=== PATIENT | female | born 1940 | race Caucasian/White ===

== ENCOUNTER → 2016-06-14 | Outpatient (CLI) | payer BC, OTHER ==
[~2016-06-14] MED LIST: ASPCH81X PO; CHOL200010 PO; CITA10TA8 PO; CLX20 PO; ONDA4TAB7 SL; RALO1TAB2 PO; RALO60TA30 PO; SIMV-151 PO
== END | disposition home or self-care (01) ==
LOC: C.RDSM 08:50
PROVIDERS: ATTEND Family Medicine
DX: M25.551 Pain in right hip (principal)

== ENCOUNTER → 2016-06-21 | Day surgery (SDC) | payer BC, OTHER ==
[2016-06-18 09:48] VITALS: BMI 33.0
[~2016-06-21] VITALS: Ht 165.1 cm; Wt 90.9 kg
[~2016-06-21] MED LIST changes: -CLX20 PO; +LABETALOL HCL IV 5 MG/ML 20ML IV ONE; +LIDOCAINE HCL 2% 2 ML VIAL (20MG/ML) ONE; +METHYLENE BLUE 1% 10 ML VIAL ONE; -ONDA4TAB7 SL; +PROPOFOL IV EMULSION 10 MG/ML 20 ML VIAL IV ONE; -RALO1TAB2 PO; +SODIUM CHLORIDE 0.9% 500ML 500 ML IV ONE
[2016-06-21 12:34] VITALS: Ht 165.1 cm; Wt 90.9 kg
--- NOTE | 2016-06-21 13:10 | Endo History and Physical ---
History & Physical Date of Service: June 21, 2016. Chief Complaint: hx of polyps Referring Physician: Dr Quach History of Present Illness Colon for EMR Past Medical History Osteoporosis, Arthritis, Gastrointestinal Disorder, Sleep Apnea Past Surgical History Hx Cardiac Surgery: No Hx Internal Defibrillator: No Hx Pacemaker: No Hx Abdominal Surgery: Yes (APPY, LAP BAND, SOFI) Hx Post-Op Nausea and Vomiting: No Hx Cancer Surgery: Yes (ARM AND CHEST EXCISION) Hx Thoracic Surgery: No Hx Orthopedic: Yes (TRIGGER FINGER RELEASE, RT CTR, RT HIP ARTHROSCOPY) Hx Urinary Tract Surgery: No Family History None Social History Smoking Status: Former Smoker Hx Substance Use: No Hx Alcohol Use: Yes (OCCASIONALLY) Allergies Coded Allergies: Codeine (Verified Adverse Reaction, Mild, GI SYMPTOMS, 06/18/16) VOMITING Lorazepam (Verified Adverse Reaction, Unknown, WEAKNESS,LETHARGY X 5 DAYS , 06/18/16) Current Medications Reported Home Medications Medications Dose Route/Sig Max Daily Dose Days Date Category Aspirin Chewable (Aspirin) 81 Mg Chew 81 Mg PO QAM 06/18/16 Reported Vitamin D (Cholecalciferol) 2,000 Unit Cap 1 Cap PO HS 06/18/16 Reported Evista (Raloxifene Hcl) 60 Mg Tab 60 Mg PO HS 06/18/16 Reported Celexa (Citalopram Hydrobromide) 10 Mg Tab 10 Mg PO HS 06/18/16 Reported Simvastatin 20 Mg Tab 20 Mg PO HS 09/01/13 Reported Vital Signs Weight (Kilograms): 90.91 Height (Feet): 5 Height (Inches): 5 Date Time Temp Pulse Resp B/P Pulse Ox O2 Delivery O2 Flow Rate FiO2 06/21/16 12:43 36.6 70 24 150/89 96 Room Air Physical Exam AAO x3 Nl s1s2\Lungs CTA Abd soft NT/ND + BS - CCE Assessment and Plan colonoscopy with emr
--- NOTE | 2016-06-21 14:12 | Discharge Instructions ---
Endoscopy Patient Instructions Date / Procedure(s) Performed June 21, 2016. Colonoscopy Allergy Information Coded Allergies: Codeine (Verified Adverse Reaction, Mild, GI SYMPTOMS, 06/18/16) VOMITING Lorazepam (Verified Adverse Reaction, Unknown, WEAKNESS,LETHARGY X 5 DAYS , 06/18/16) Discharge Date / Findings June 21, 2016. polypectomy via EMR Medication Instructions Restart Stopped Medication(s): Reported Home Medications Medications Dose Route/Sig Max Daily Dose Days Date Category Aspirin Chewable (Aspirin) 81 Mg Chew 81 Mg PO QAM 06/18/16 Reported Vitamin D (Cholecalciferol) 2,000 Unit Cap 1 Cap PO HS 06/18/16 Reported Evista (Raloxifene Hcl) 60 Mg Tab 60 Mg PO HS 06/18/16 Reported Celexa (Citalopram Hydrobromide) 10 Mg Tab 10 Mg PO HS 06/18/16 Reported Simvastatin 20 Mg Tab 20 Mg PO HS 09/01/13 Reported Reported Home Medications Medications Dose Route/Sig Max Daily Dose Days Date Category Aspirin Chewable (Aspirin) 81 Mg Chew 81 Mg PO QAM 06/18/16 Reported Vitamin D (Cholecalciferol) 2,000 Unit Cap 1 Cap PO HS 06/18/16 Reported Evista (Raloxifene Hcl) 60 Mg Tab 60 Mg PO HS 06/18/16 Reported Celexa (Citalopram Hydrobromide) 10 Mg Tab 10 Mg PO HS 06/18/16 Reported Simvastatin 20 Mg Tab 20 Mg PO HS 09/01/13 Reported Provider Instructions Activity Restrictions - No exercising or heavy lifting for 24 hours. - Do not drink alcohol the day of the procedure. - Do not drive a car or operate machinery until the day after the procedure. - Do not make any important decisions or sign important papers in 24 hours after the procedure. Following Day: - Return to full activity which may include returning to work/school. Diet Start your diet with liquids and light foods (jello, soup, juice, toast). Then eat your usual diet if not nauseated. Treatment For Common After Affects For mild abdominal pain, bloating, or excessive gas: - Rest - Eat lightly - Lie on right side Follow-Up Information Follow-up with Dr Quach as scheduled Anesthesia Information What You Should Know You have had a procedure that required some medicine to reduce anxiety and discomfort. This treatment is called moderate sedation. After receiving the treatment, you may be sleepy, but you will be able to breathe on your own. The effects of the treatment may last for several hours. Follow these instructions along with Activity/Diet recommendations noted above: * Do NOT do anything where dizziness or clumsiness would be dangerous. * Rest quietly at home today, then you can be up and about tomorrow. * Have a responsible person stay with you the rest of today. * You may have had an I.V. today. If so, you may take the dressing off later today. Recommendations Call your doctor if: * Trouble breathing * Continuous vomiting for more than 24 hours * Temperature above 101 degrees * Severe abdominal pain or bloating * Pain not relieved by pain medicine ordered * There is increased drainage or redness from any incision * A large amount of rectal bleeding greater than 2-3 tablespoons. (If you had a polyp/s removed or have hemorrhoids, a small amount of blood - from the rectum is to be expected.) * You have any unanswered questions or concerns. IN THE EVENT OF A SERIOUS EMERGENCY, GO TO THE NEAREST EMERGENCY ROOM Your discharge instructions were prepared by provider Bill Umanzor. Patient Instructions Signature Page Crystal Horner Patient (or Guardian) Signature/Date: I have read and understand the instructions given to me by my caregivers. Caregiver/RN/Doctor Signature/Date: The above-named patient and/or guardian has received patient instructions on this date. + Original Patient Signature Page (only) stays with chart. Please make copy for patient.
--- NOTE | 2016-06-21 14:20 | GI REPORT ---
Procedure Date: 06/21/2016 1:14 PM Procedure: Colonoscopy Indications: Therapeutic procedure for colon polyps Medicines: Propofol per Anesthesia Complications: No immediate complications. Estimated blood loss: None. Estimated Blood Loss: Estimated blood loss was minimal. Procedure: Pre-Anesthesia Assessment: - Prior to the procedure, a History and Physical was performed, and patient medications and allergies were reviewed. The patient's tolerance of previous anesthesia was also reviewed. The risks and benefits of the procedure and the sedation options and risks were discussed with the patient. All questions were answered, and informed consent was obtained. Prior Anticoagulants: The patient has taken no previous anticoagulant or antiplatelet agents. ASA Grade Assessment: III - A patient with severe systemic disease. After reviewing the risks and benefits, the patient was deemed in satisfactory condition to undergo the procedure. After I obtained informed consent, the scope was passed under direct vision. Throughout the procedure, the patient's blood pressure, pulse, and oxygen saturations were monitored continuously. The scope was introduced through the anus and advanced to the cecum, identified by appendiceal orifice and ileocecal valve. The colonoscopy was performed without difficulty. The patient tolerated the procedure well. The quality of the bowel preparation was good. Findings: The perianal and digital rectal examinations were normal. Pertinent negatives include normal sphincter tone, no palpable rectal lesions and no anal lesion or abnormality was detected. A 20 mm polyp was found in the ascending colon. The polyp was sessile. Area was successfully injected with 9 mL saline with methylene blue for a lift polypectomy via endoscopic mucosal resection technique( EMR). The polyp was removed with a hot snare. The polyp was removed with a saline injection-lift technique using a hot snare. The polyp was removed with a piecemeal technique using a hot snare. Resection and retrieval were complete. To prevent bleeding after mucosal resection, six hemostatic clips were successfully placed (MR conditional). There was no bleeding during, and at the end, of the procedure. A 7 mm polyp was found at 20 cm proximal to the anus. The polyp was sessile. The polyp was removed with a hot snare. Resection and retrieval were complete. Estimated blood loss: none. Verification of patient identification for the specimen was done by the physician and tool technician using the patient's name and medical record number. The exam was otherwise without abnormality. The retroflexed view of the distal rectum and anal verge was normal and showed no anal or rectal abnormalities. Impression: - One 20 mm polyp in the ascending colon, removed with a hot snare, removed using injection-lift and a hot snare and removed piecemeal using a hot snare. Resected and retrieved. Injected. Clips (MR conditional) were placed. - One 7 mm polyp at 20 cm proximal to the anus, removed with a hot snare. Resected and retrieved. - The examination was otherwise normal. - The distal rectum and anal verge are normal on retroflexion view. Recommendation: - Patient has a contact number available for emergencies. The signs and symptoms of potential delayed complications were discussed with the patient. Return to normal activities tomorrow. Written discharge instructions were provided to the patient. - Resume regular diet. - Continue present medications. - Await pathology results. - Repeat colonoscopy for surveillance based on pathology results. - Return to referring physician as previously scheduled. MD Bill Dunlap MD 06/21/2016 2:20:24 PM This report has been signed electronically. Note Initiated On: 06/21/2016 1:14 PM I attest to the content of the Intraoperative Record and orders documented therein, exceptions below
--- NOTE | 2016-06-21 14:34 | Anesthesiology Progress Note ---
Anesthesia Post Op Note Date & Time June 21, 2016 at 14:34 Vital Signs Pain Intensity: 5 Vital Signs Past 12 Hours Date Time Temp Pulse Resp B/P Pulse Ox O2 Delivery O2 Flow Rate FiO2 06/21/16 14:30 66 16 140/80 97 Room Air 06/21/16 14:19 70 16 151/79 97 Room Air 06/21/16 12:43 36.6 70 24 150/89 96 Room Air Notes Mental Status: alert / awake / arousable, participated in evaluation Pt Amnestic to Procedure: Yes Nausea / Vomiting: adequately controlled Pain: adequately controlled Airway Patency, RR, SpO2: stable & adequate BP & HR: stable & adequate Hydration State: stable & adequate Anesthetic Complications: no major complications apparent Pt doing well. She's having some cramping which is expected since she had an EMR but overall feels well.
[2016-06-21 14:40] VITALS: BP 156/96; PULSE 72; O2SAT 96
== END | disposition home or self-care (01) ==
LOC: C.GI 12:09
PROVIDERS: ATTEND Internal Medicine Gastroenterology
DX: D12.2 Benign neoplasm of ascending colon (principal); Z86.010 Personal history of colon polyps; Z98.84 Bariatric surgery status; Z90.49 Acquired absence of other specified parts of digestive tract; M81.0 Age-related osteoporosis without current pathological fracture; G47.30 Sleep apnea, unspecified; Z87.891 Personal history of nicotine dependence

== ENCOUNTER 2016-08-21 20:48 | Emergency (ER) | payer BC ==
[~2016-08-21] VITALS: Ht 165.1 cm; Wt 98.6 kg
[~2016-08-21 20:48] MED LIST changes: -LABETALOL HCL IV 5 MG/ML 20ML IV ONE; -LIDOCAINE HCL 2% 2 ML VIAL (20MG/ML) ONE; -METHYLENE BLUE 1% 10 ML VIAL ONE; -PROPOFOL IV EMULSION 10 MG/ML 20 ML VIAL IV ONE; +RALO60TA12 PO; -RALO60TA30 PO; -SODIUM CHLORIDE 0.9% 500ML 500 ML IV ONE
[2016-08-21 20:55] VITALS: TEMP 36.7; Ht 165.1 cm; Wt 98.6 kg
[2016-08-21] MEDS ORDERED: XYLOCAINE 1%/SOD BICARB 20 ML VIAL INFIL ONE (21:45)
[2016-08-21] MEDS ORDERED: BUPIVACAINE 0.5 % 5 MG/1 ML MPF 30ML VIAL INFIL ONE (21:45)
--- NOTE | 2016-08-21 22:32 | EMERGENCY ROOM VISIT NOTE ---
ED Visit Note First contact with patient: 21:28 CHIEF COMPLAINT: Finger laceration HISTORY OF PRESENT ILLNESS: This 75-year-old female patient presents to the emergency department after cutting the left second and third digit with electric hedge clippers The bleeding has stopped. Denies weakness or numbness of the finger. The patient has full range of motion of the fingers. The patient rates the pain as burning and 3/10. The patient denies any other injuries. The patient's tetanus shot is up to date. REVIEW OF SYSTEMS: A 6 system review of systems was completed with positives and pertinent negatives listed in the HPI. ALLERGIES: No known drug allergies MEDICATIONS: I personally reviewed the patient's medication list PMH: She is otherwise healthy SOCIAL HISTORY: Has one glass of wine per day, does not use tobacco products PHYSICAL EXAM: Vital Signs: Reviewed Nurse's notes, vital signs stable. GENERAL : 75-year-old female, in no acute distress, well developed, well nourished. SKIN: There is a 1 cm long laceration on the palmar aspect of the distal aspect of the left second finger. The edges do not gape apart with traction. There is no foreign material in the wound and it looks clean. There is no active bleeding. There is also a very superficial 0.5 cm laceration to the pad of the left third digit with no active bleeding or foreign material. Capillary refill less than 2 seconds. Normal sensation to light and sharp touch. EMERGENCY DEPARTMENT COURSE: I examined the patient. The physician community assistant student repaired the laceration under my direct supervision. Verbal consent was obtained to perform the procedure. Using sterile technique the wound was cleansed with Betadine. 5 ml of 1% buffered lidocaine was used to perform a digital block to anesthetize the patient. The area was sterilely draped. Once the patient was anesthetized, the wound was copiously irrigated under pressure with sterile saline. The wound was explored and there were no deep structures injured. The laceration was repaired using Dermabond and Steri-Strips. The patient tolerated the procedure well. Hemostasis was achieved. The area was cleaned with sterile saline and dressed with bacitracin ointment and bandage. The patient was discharged home in good condition. DIAGNOSIS: Finger laceration DISCHARGE INSTRUCTIONS & TREATMENT: Please try not to get the lacerations wet for 24-48 hours. After that timeframe, the Band-Aids may be removed. Washing your hands with soapy water is okay. Please do not soak your hands and long standing water. For instance, no dishes, no baths no hot tubs or swimming for 1 week. Please watch for signs of infection such as redness, swelling or severe pain. Please follow up with the family doctor as needed, or return the emergency department.
[2016-08-21 23:06] VITALS: BP 153/87; PULSE 74; O2SAT 95
== END 2016-08-21 22:42 | disposition home or self-care (01) ==
LOC: C.EDB 20:50 → C.EDD 22:42
DX: S61.211A Laceration without foreign body of left index finger without damage to nail, initial encounter (principal); S61.213A Laceration without foreign body of left middle finger without damage to nail, initial encounter; W45.8XXA Other foreign body or object entering through skin, initial encounter

== ENCOUNTER → 2016-12-27 | Outpatient (CLI) | payer BC, OTHER ==
[~2016-12-27] MED LIST changes: -RALO60TA12 PO; +RALO60TA30 PO
--- NOTE | 2016-12-27 10:45 | DIAGNOSTIC IMAGING REPORT ---
SOFT TISS HEAD/NECK-THYROID CLINICAL HISTORY: 76 years-old Female presenting with E04.1. TECHNIQUE: Real-time grayscale and color Doppler ultrasound imaging of the thyroid and base of the neck was performed. COMPARISON: 12/29/2015. FINDINGS: Right lobe: Heterogeneous secondary to the presence of multiple nodules. The right lobe of the thyroid measures 4.6 x 2.3 x 1.5 cm. Nodules as below: 1. Previously seen isoechoic nodule in the interpolar region with a thin hypoechoic rim now measures 1.2 x 1.2 x 1.2 cm, previously 1.0 x 1.2 x 0.9 cm (low suspicion). 2. 0.7 x 0.3 x 0.7 cm interpolar anterior well-defined hypoechoic nodule (intermediate suspicion). 3. 0.6 x 0.3 x 0.5 cm lower pole anterior well-defined hypoechoic nodule (intermediate suspicion). Left lobe: Heterogeneous secondary to the presence of multiple nodules. The left lobe of the thyroid measures 4.1 x 1.6 x 1.3 cm. Nodules below: 1. 0.8 x 0.7 x 0.4 cm interpolar well-defined hypoechoic nodule (intermediate suspicion). 2. 1.2 x 1.1 x 0.8 cm lower pole well-defined isoechoic nodule (low suspicion). Isthmus: The isthmus measures 2 mm in thickness. No nodules. IMPRESSION: Multinodular thyroid. Increased number of nodules since the prior exam. No nodules meet [place] [employer] criteria for fine-needle aspiration at this time. Continued follow-up ultrasound could be considered as clinically indicated. Electronically signed by: Chang Basilio M.D. 12/27/2016 10:44 AM Dictated Date/Time: 12/27/2016 10:38 AM
== END | disposition home or self-care (01) ==
LOC: C.ULTR 09:40
PROVIDERS: ATTEND Family Medicine
DX: E04.2 Nontoxic multinodular goiter (principal)

== ENCOUNTER → 2017-06-17 | Outpatient (CLI) | payer BC ==
[~2017-06-17] MED LIST changes: -ASPCH81X PO; +CALC500C70 PO; +CHOL100010 PO; -CITA10TA8 PO; -RALO60TA30 PO
--- NOTE | 2017-06-17 14:35 | MAMMOGRAPHY REPORT ---
BILATERAL DIGITAL SCREENING MAMMOGRAM TOMOSYNTHESIS WITH CAD: 06/17/2017 CLINICAL HISTORY: Routine screening. Patient has no complaints. TECHNIQUE: Breast tomosynthesis in addition to standard 2D mammography was performed. Current study was also evaluated with a Computer Aided Detection (CAD) system. COMPARISON: Comparison is made to exams dated: 01/11/2015 mammogram, 11/06/2012 mammogram, 11/06/2011 m ammogram, 10/26/2010 mammogram - [facility], 07/15/2008, and 07/12/2008. BREAST COMPOSITION: There are scattered areas of fibroglandular density in both breasts. FINDINGS: The parenchymal pattern is unchanged. No developing mass, architectural distortion or clus ter of suspicious microcalcifications is seen in either breast. There are benign appearing scattered calcifications in both breasts. IMPRESSION: ACR BI-RADS CATEGORY 2: BENIGN There is no mammographic evidence of malignancy. A 1 year screening mammogram is recommended. The pa tient will receive written notification of the results. Approximately 10% of breast cancers are not detected with mammography. A negative mammographic report should not delay biopsy if a clinically suggestive mass is present. Gracie Alejandre M.D. ay/:06/17/2017 13:28:35 Spray Drier: Clair RAMOS(Jose Antonio)(M), [facility] letter sent: Normal 1/2 BI-RADS Code: ACR BI-RADS Category 2: Benign
== END | disposition home or self-care (01) ==
LOC: C.MAMM 10:30
PROVIDERS: ATTEND Family Medicine
DX: Z12.31 Encounter for screening mammogram for malignant neoplasm of breast (principal); M81.0 Age-related osteoporosis without current pathological fracture; M85.851 Other specified disorders of bone density and structure, right thigh; M85.852 Other specified disorders of bone density and structure, left thigh

== ENCOUNTER → 2017-06-24 | Day surgery (SDC) | payer BC ==
[~2017-06-24] VITALS: Ht 162.6 cm; Wt 79.5 kg
[~2017-06-24] MED LIST changes: +LIDOCAINE HCL 2% 2 ML VIAL (20MG/ML) ONE; +METHYLENE BLUE 0.5% 10 ML VIAL ONE; +PROPOFOL IV EMULSION 10 MG/ML 20 ML VIAL ONE; +SODIUM CHLORIDE 0.9% 500ML 500 ML IV ONE
[2017-06-24 13:11] VITALS: Ht 162.6 cm; Wt 79.5 kg
--- NOTE | 2017-06-24 15:08 | Endo History and Physical ---
History & Physical Date of Service: June 24, 2017. Chief Complaint: hx polyps Referring Physician: Dr. Quach History of Present Illness hx of polyps Past Medical History Osteoporosis, Arthritis, Gastrointestinal Disorder, Sleep Apnea Past Surgical History Hx Cardiac Surgery: No Hx Internal Defibrillator: No Hx Pacemaker: No Hx Abdominal Surgery: Yes (APPY, LAP BAND, SOFI) Hx Post-Op Nausea and Vomiting: No Hx Cancer Surgery: Yes (ARM AND CHEST EXCISION) Hx Thoracic Surgery: No Hx Orthopedic: Yes (TRIGGER FINGER RELEASE, RT CTR, RT HIP ARTHROSCOPY) Hx Urinary Tract Surgery: No Social History Smoking Status: Former Smoker Hx Substance Use: No Hx Alcohol Use: Yes (OCCASIONALLY) Allergies Coded Allergies: Codeine (Verified Adverse Reaction, Mild, GI SYMPTOMS, 06/24/17) VOMITING Lorazepam (Verified Adverse Reaction, Unknown, WEAKNESS,LETHARGY X 5 DAYS , 06/24/17) Current Medications Reported Home Medications Medications Dose Route/Sig Max Daily Dose Days Date Category Vitamin D (Cholecalciferol) 1,000 Unit Tab 3 Tab PO DAILY 06/13/17 Reported Os-Erich 500 Plus D (Calcium/Vitamin D) Tab 2 Tab PO DAILY 06/13/17 Reported Vitamin D (Cholecalciferol) 2,000 Unit Cap 1 Cap PO HS 06/18/16 Reported Simvastatin 20 Mg Tab 20 Mg PO HS 09/01/13 Reported Vital Signs Weight (Kilograms): 79.55 Height (Feet): 5 Height (Inches): 4 Date Time Temp Pulse Resp B/P (MAP) Pulse Ox O2 Delivery O2 Flow Rate FiO2 06/24/17 13:17 36.6 66 20 151/90 (110) 97 Room Air Physical Exam General Appearance: WD/WN, no apparent distress Respiratory/Chest: Auscultation: breath sounds normal Cardiovascular: Heart Auscultation: RRR Abdomen: Bowel Sounds: normal Inspection & Palpation: soft, non-distended, no tenderness, guarding & rebound Assessment and Plan colonoscopy with possible bx, polypectomy and/or EMR
--- NOTE | 2017-06-24 15:52 | Discharge Instructions ---
Endoscopy Patient Instructions Date / Procedure(s) Performed June 24, 2017. Colonoscopy Allergy Information Coded Allergies: Codeine (Verified Adverse Reaction, Mild, GI SYMPTOMS, 06/24/17) VOMITING Lorazepam (Verified Adverse Reaction, Unknown, WEAKNESS,LETHARGY X 5 DAYS , 06/24/17) Discharge Date / Findings June 24, 2017. polyps removed/cautery Medication Instructions Restart Stopped Medication(s): Reported Home Medications Medications Dose Route/Sig Max Daily Dose Days Date Category Vitamin D (Cholecalciferol) 1,000 Unit Tab 3 Tab PO DAILY 06/13/17 Reported Os-Erich 500 Plus D (Calcium/Vitamin D) Tab 2 Tab PO DAILY 06/13/17 Reported Vitamin D (Cholecalciferol) 2,000 Unit Cap 1 Cap PO HS 06/18/16 Reported Simvastatin 20 Mg Tab 20 Mg PO HS 09/01/13 Reported Reported Home Medications Medications Dose Route/Sig Max Daily Dose Days Date Category Vitamin D (Cholecalciferol) 1,000 Unit Tab 3 Tab PO DAILY 06/13/17 Reported Os-Erich 500 Plus D (Calcium/Vitamin D) Tab 2 Tab PO DAILY 06/13/17 Reported Vitamin D (Cholecalciferol) 2,000 Unit Cap 1 Cap PO HS 06/18/16 Reported Simvastatin 20 Mg Tab 20 Mg PO HS 09/01/13 Reported Provider Instructions Activity Restrictions - No exercising or heavy lifting for 24 hours. - Do not drink alcohol the day of the procedure. - Do not drive a car or operate machinery until the day after the procedure. - Do not make any important decisions or sign important papers in 24 hours after the procedure. Following Day: - Return to full activity which may include returning to work/school. Diet Start your diet with liquids and light foods (jello, soup, juice, toast). Then eat your usual diet if not nauseated. Treatment For Common After Affects For mild abdominal pain, bloating, or excessive gas: - Rest - Eat lightly - Lie on right side Follow-Up Information Follow-up with Dr. Quach as scheduled Anesthesia Information What You Should Know You have had a procedure that required some medicine to reduce anxiety and discomfort. This treatment is called moderate sedation. After receiving the treatment, you may be sleepy, but you will be able to breathe on your own. The effects of the treatment may last for several hours. Follow these instructions along with Activity/Diet recommendations noted above: * Do NOT do anything where dizziness or clumsiness would be dangerous. * Rest quietly at home today, then you can be up and about tomorrow. * Have a responsible person stay with you the rest of today. * You may have had an I.V. today. If so, you may take the dressing off later today. Recommendations Call your doctor if: * Trouble breathing * Continuous vomiting for more than 24 hours * Temperature above 101 degrees * Severe abdominal pain or bloating * Pain not relieved by pain medicine ordered * There is increased drainage or redness from any incision * A large amount of rectal bleeding greater than 2-3 tablespoons. (If you had a polyp/s removed or have hemorrhoids, a small amount of blood - from the rectum is to be expected.) * You have any unanswered questions or concerns. IN THE EVENT OF A SERIOUS EMERGENCY, GO TO THE NEAREST EMERGENCY ROOM Your discharge instructions were prepared by provider Bill Umanzor. Patient Instructions Signature Page Crystal Horner Patient (or Guardian) Signature/Date: I have read and understand the instructions given to me by my caregivers. Caregiver/RN/Doctor Signature/Date: The above-named patient and/or guardian has received patient instructions on this date. + Original Patient Signature Page (only) stays with chart. Please make copy for patient.
--- NOTE | 2017-06-24 16:11 | GI REPORT ---
Patient Name: Crystal Horner Procedure Date: 06/24/2017 2:54 PM Date of : 1940 Admit Type: Outpatient Age: 76 Gender: Female Attending MD: Bill Umanzor MD Procedure: Colonoscopy Providers: Bill Umanzor MD Referring MD: Michael Quach Indications: Therapeutic procedure for colon polyps Medicines: Propofol per Anesthesia Complications: No immediate complications. Estimated blood loss: Minimal. Estimated Blood Loss: Estimated blood loss was minimal. Procedure: Pre-Anesthesia Assessment: - Prior to the procedure, a History and Physical was performed, and patient medications and allergies were reviewed. The patient's tolerance of previous anesthesia was also reviewed. The risks and benefits of the procedure and the sedation options and risks were discussed with the patient. All questions were answered, and informed consent was obtained. Prior Anticoagulants: The patient has taken no previous anticoagulant or antiplatelet agents. ASA Grade Assessment: II - A patient with mild systemic disease. After reviewing the risks and benefits, the patient was deemed in satisfactory condition to undergo the procedure. After I obtained informed consent, the scope was passed under direct vision. Throughout the procedure, the patient's blood pressure, pulse, and oxygen saturations were monitored continuously. The scope was introduced through the anus and advanced to the terminal ileum, with identification of the appendiceal orifice and IC valve. The colonoscopy was performed without difficulty. The patient tolerated the procedure well. The quality of the bowel preparation was good. Findings: The perianal and digital rectal examinations were normal. Pertinent negatives include normal sphincter tone, no palpable rectal lesions and no anal lesion or abnormality was detected. A 5 mm polyp was found in the ascending colon. The polyp was sessile. The polyp was removed with a cold biopsy forceps. Resection and retrieval were complete. Estimated blood loss was minimal. Verification of patient identification for the specimen was done by the physician and highway engineering technician using the patient's name and medical record number. Fulguration to ablate the lesion remnants by monopolar probe was successful. A 10 mm polyp was found in the ascending colon. The polyp was sessile. The polyp was removed with a hot snare. Resection and retrieval were complete. Fulguration to ablate the lesion remnants by monopolar probe and snare was successful. To prevent bleeding after the polypectomy, one hemostatic clip was successfully placed (MR conditional). There was no bleeding during, or at the end, of the procedure. The exam was otherwise without abnormality. The terminal ileum appeared normal. The retroflexed view of the distal rectum and anal verge was normal and showed no anal or rectal abnormalities. Impression: - One 5 mm polyp in the ascending colon, removed with a cold biopsy forceps. Resected and retrieved. Treated with a monopolar probe. - One 10 mm polyp in the ascending colon, removed with a hot snare. Resected and retrieved. Treated with a monopolar probe. Treated with a hot snare. Clip (MR conditional) was placed. - The examination was otherwise normal. - The examined portion of the ileum was normal. - The distal rectum and anal verge are normal on retroflexion view. Recommendation: - Discharge patient to home (ambulatory). - Resume regular diet. - Continue present medications. - Repeat colonoscopy for surveillance based on pathology results. - Return to referring physician as previously scheduled. - Repeat colonoscopy in 6-12 months for surveillance based on pathology results. MD Bill Dunlap MD 06/24/2017 4:10:28 PM This report has been signed electronically. Note Initiated On: 06/24/2017 2:54 PM Number of Addenda: 0 I attest to the content of the Intraoperative Record and orders documented therein, exceptions below {[id number]}
--- NOTE | 2017-06-24 16:22 | Anesthesiology Progress Note ---
Anesthesia Post Op Note Date & Time June 24, 2017 at 16:22 Vital Signs Pain Intensity: 0 Vital Signs Past 12 Hours Date Time Temp Pulse Resp B/P (MAP) Pulse Ox O2 Delivery O2 Flow Rate FiO2 06/24/17 16:12 62 16 166/91 (116) 98 Room Air 06/24/17 15:57 64 16 148/94 (112) 98 Room Air 06/24/17 13:17 36.6 66 20 151/90 (110) 97 Room Air
[2017-06-24 16:27] VITALS: BP 173/97; PULSE 60; O2SAT 96
== END | disposition home or self-care (01) ==
LOC: C.GI 12:02
PROVIDERS: ATTEND Internal Medicine Gastroenterology
DX: Z86.010 Personal history of colon polyps (principal); K63.5 Polyp of colon; G47.33 Obstructive sleep apnea (adult) (pediatric); Z88.5 Allergy status to narcotic agent; Z88.8 Allergy status to other drugs, medicaments and biological substances; Z90.89 Acquired absence of other organs; Z90.49 Acquired absence of other specified parts of digestive tract; Z87.891 Personal history of nicotine dependence; Z85.828 Personal history of other malignant neoplasm of skin

== ENCOUNTER 2022-05-12 10:16 | Inpatient (IN) ==
--- NOTE | 2022-05-12 10:53 | Emergency Department Note ---
Impression & Plan Right leg weakness, Paresthesia of right leg ED Provider Note Name: MARCI WILDE Age: 81 Sex: F Arrives Via: Walk-In Informant: Patient, son ED Provider: Johnathan Escamilla MD Chief Complaint: Right leg weakness Impression: As per impressions above Medical Decision Makin-year-old female with a history of dyslipidemia and osteoporosis and a remote history of sciatica arrives for evaluation of right leg paresthesias and weakness which began at 3 AM this morning. She is well outside of thrombolytic therapy range and her exam is not consistent with a large vessel. She does have about 4 out of 5 strength of the right quad but no other weakness in the leg. She has not decreased perceived sensation of the right leg but she can still feel. She has good pulses. CT of the head was unremarkable as well as a CT of the lumbar spine. EKG is normal sinus without A-fib. Laboratory work-up is benign. I am somewhat suspicious that the patient has had a small CVA. It seems unlikely sciatic in nature given she has essentially no sciatica pain. Clearly her will need further work-up and hospitalist consulted for further management. I will note that patient was not given aspirin as she has a possible previous allergy. Discussed with hospitalist who will await work-up of MRI prior to initiating aspirin and Plavix. Patient is comfortable with this plan. I will note she has no abdominal pain tenderness palpation or evidence of aortic/femoral artery occlusion. Triage/Nursing Notes reviewed by Me External chart review by me Differentials:Stroke, nerve impingement, sciatica, infectious etiology, DVT, aortic pathology, multiple other pathologies considered Vital Signs: reviewed and remarkable for hypertension Labs:Reviewed and remarkable for no significant abnormalities Imaging: CT of the head without contrast as per my informal interpretation reveals no evidence of intracranial hemorrhage or mass effect. CT of the lumbar spine as per my informal interpretation reveals no evidence of fracture no dislocation. There is moderate amount of osteoporosis. See radiologist reads for full. EKG:As per my interpretation. Indication strokelike symptoms. Right bundle branch block at 71 bpm and a QTc of 469. There is no ectopy nor overt ischemia. When compared to an EKG of January 09, 2014 there is no significant change. Cardiac/Tele Monitoring: Cardiac Monitoring: An Order was placed for continuous cardiac monitoring. The monitor shows a rate of 70 with a normal sinus rhythm. Consults:Dr Meg ROACH Hospitalist Plan: Disposition:Hospitalization. Condition: Good History of Present Illness:81-year-old female arrives for evaluation of right leg weakness. Patient notes she awoke around 3 AM felt like her right leg had gone to sleep. She is unable to use it properly. She ended up going back to [facility] thinking she just slept on it awkwardly. Symptoms have continued throughout the day. When she got up this morning she realized her leg was weak so she found an old cane and has been using a cane to get around because her leg is so weak. Feels that the tingling goes over the lateral leg down to the foot with minimal sensation over the bottom of the foot. Denies any significant pain, rash, fevers. Has no discoloration of the leg. Denies any chest pain, shortness of breath, palpitations, headache, neck pain, weakness of arms or legs, visual changes, nausea, vomiting, abdominal pain or any other concerning signs or symptoms recently. No recent falls, trauma, injuries. She does have a history of right leg sciatica but denies any previous symptoms similar to today. Has a history of right hip surgery. Past Medical History:Dyslipidemia, osteoporosis Home Medications:See Below Allergies:Ativan, codeine. Patient notes she previously had aspirin many years ago and had hives after taking it. Vitals:Blood Pressure: 143/83, Pulse 70, RR 18, T 36.2C, O2 96% on RA Physical Exam: GENERAL: Patient is mildly anxious appearing and in minimal distress. EYES: No scleral icterus, unremarkable pupils. RESPIRATORY: No dyspnea. Clear to auscultation and equal bilaterally. No wheeze, no rhonchi. CARDIOVASCULAR: Regular rate and rhythm.No murmurs, rubs, gallops appreciated. GASTROINTESTINAL: Abdomen soft, non-tender, no peritonitis. BACK: No midline tenderness, no CVA tenderness EXTREMITIES: Normal motion all extremities, no cyanosis, no edema. NEUROLOGIC: Alert and oriented. Patient with 4 out of 5 proximal right thigh strength but otherwise 5 out of 5 strength all 4 extremities. She reports perceived paresthesias of the right lower leg from the lateral right calf to the foot and bottom of foot. Still has sensation. Otherwise no acute motor or sensory deficits, no focal weakness, cranial nerves grossly intact. SKIN: No rash, no jaundice, no diaphoresis. PSYCH: Appropriate GCS: 15 ED Course: Times/Reassessments: Patient stable no distress and agreeable to hospitalization. Johnathan Escamilla MD Past Med/Surg History Medical History (Updated 05/12/22 @ 13:33 by Chang Weaver MD) AAA (abdominal aortic aneurysm) PCP monitoring -- last evaluated approx 1 year ago [place] Foot fracture hx multiple fractures Hand fracture hx multiple hand bones History of basal cell carcinoma History of colon polyps History of squamous cell carcinoma History of trigger finger Hyperlipidemia Sleep apnea CPAP Surgical History History of appendectomy History of arthroscopy Rt hip History of basal cell carcinoma (BCC) excision History of cataract surgery History of cholecystectomy History of colonoscopy History of dilatation and curettage History of laparoscopic adjustable gastric banding History of squamous cell carcinoma excision History of tonsillectomy S/P carpal tunnel release Family History Father Cardiac disorder Other Arthritis No family history of adverse response to anesthesia Social History Smoking Status: Former smoker Cigarettes Per Day: QUIT 14 YEARS AGO, HX OF 1PPD; Smoking End Date: 18 years ago; Second Hand Exposure: No; Hx Alcohol Use: Yes Alcohol type: wine Hx Substance Use: No Preferred Language: Ukrainian Communication Ability: Effective Refining Still Operator Required: No Beliefs That Will Affect Care: None Current Living Situation: Alone current occupational status: retired Feels Safe at Home: Yes Safety Concerns: Feels Safe At This Time Assistive Devices: CPAP Allergies Allergies Allergy/AdvReac Type Severity Reaction Status Date / Time lorazepam AdvReac Intermediate WEAKNESS,LETHARGY Verified 05/12/22 14:24 X 5 DAYS codeine AdvReac Mild GI SYMPTOMS Verified 05/12/22 14:24 Home Meds Home Medications Medication Instructions Recorded Confirmed calcium carbonate 600 mg calcium 1,200 mg PO QAM 03/30/18 05/12/22 (1,500 mg) tablet (Calcium) cholecalciferol (vitamin D3) 25 2,000 unit PO QAM 03/30/18 05/12/22 mcg (1,000 unit) capsule (Vitamin D3) simvastatin 20 mg tablet 20 mg PO QAM 03/30/18 05/12/22 ascorbic acid (vitamin C) 250 mg 500 mg PO QAM 07/26/21 05/12/22 tablet (Vitamin C) amlodipine 5 mg-olmesartan 20 mg 1 tab PO DAILY 05/12/22 05/12/22 tablet citalopram 10 mg tablet 10 mg PO DAILY 05/12/22 05/12/22 Results & Data (ED) Vital Signs Vital Signs - 24 hr 05/12/22 10:23 05/12/22 10:50 05/12/22 12:17 Temperature 36.2 C L Temperature Source Temporal Artery Scan Pulse Rate 70 58 L Pulse Rate [Apical] 55 L Pulse Rate from SpO2 Sensor Respiratory Rate 18 18 Respiratory Effort / Characteristics Non-Labored Non-Labored Spontaneous Respiratory Depth Normal Normal Respiratory Pattern Regular Regular Blood Pressure 143/83 H Blood Pressure [Right Arm] 174/90 H Blood Pressure Mean 103 Blood Pressure Mean [Right Arm] 118 Blood Pressure Position [Right Arm] Sitting Pulse Oximetry 96 97 Oxygen Delivery Method Room Air Room Air Sepsis Recent Fever Within 48 Hours No Sepsis New/Unexplained Change in Mental Status N/A Sepsis Action Taken by Nursing No Action Required 05/12/22 11:00 05/12/22 12:00 05/12/22 12:44 Temperature Temperature Source Pulse Rate 72 59 L 60 Pulse Rate [Apical] Pulse Rate from SpO2 Sensor 72 Respiratory Rate 23 20 18 Respiratory Effort / Characteristics Respiratory Depth Respiratory Pattern Blood Pressure 154/79 H Blood Pressure [Right Arm] Blood Pressure Mean 104 Blood Pressure Mean [Right Arm] Blood Pressure Position [Right Arm] Pulse Oximetry 95 95 95 Oxygen Delivery Method Room Air Room Air Room Air Sepsis Recent Fever Within 48 Hours Sepsis New/Unexplained Change in Mental Status Sepsis Action Taken by Nursing 05/12/22 12:44 05/12/22 13:00 Temperature Temperature Source Pulse Rate 64 Pulse Rate [Apical] Pulse Rate from SpO2 Sensor 64 Respiratory Rate 17 Respiratory Effort / Characteristics Respiratory Depth Respiratory Pattern Blood Pressure 154/79 H 160/84 H Blood Pressure [Right Arm] Blood Pressure Mean 104 109 Blood Pressure Mean [Right Arm] Blood Pressure Position [Right Arm] Pulse Oximetry 96 Oxygen Delivery Method Room Air Sepsis Recent Fever Within 48 Hours Sepsis New/Unexplained Change in Mental Status Sepsis Action Taken by Nursing Laboratory Data 05/12/22 11:13 05/12/22 11:13 Lab Results 05/12/22 05/12/22 05/12/22 Range/Units 10:53 11:13 11:13 WBC 5.96 (4.8-10.8) K/ul RBC 4.56 (4.20-5.40) M/uL Hgb 13.2 (12.0-16.0) g/dl Hct 40.8 (37.0-47.0) % MCV 89.5 (80.0-100.0) fL MCH 28.9 (25.0-34.0) pg MCHC 32.4 (32.0-36.0) g/dL RDW Std Deviation 41.1 (36.4-46.3) fL RDW Coeff of Jazmin 12.5 (11.5-14.5) % Plt Count 292 (130-400) K/uL MPV 10.6 (9.4-12.4) fL Immature Gran % (Auto) 0.2 % Neut % (Auto) 62.4 % Lymph % (Auto) 20.1 % Lane % (Auto) 7.6 % Eos % (Auto) 8.7 % Baso % (Auto) 1.0 % Neut # (Auto) 3.72 (1.40-6.50) K/uL Lymph # (Auto) 1.20 (1.2-3.4) K/uL Lane # (Auto) 0.45 (0.11-0.59) K/uL Eos # (Auto) 0.52 H (0-0.50) K/uL Baso # (Auto) 0.06 (0-0.2) K/uL Immature Gran # (Auto) 0.01 (0.01-0.20) K/uL PT 10.0 (9.0-12.0) Seconds INR 0.9 (0.9-1.1) APTT 23.9 (21.0-31.0) Seconds PTT Ratio 0.9 Sodium (136-145) mmol/L Potassium (3.5-5.1) mmol/L Chloride (98-107) mmol/L Carbon Dioxide (21-32) mmol/L Anion Gap (3-11) BUN (6-23) mg/dl Creatinine (0.6-1.2) mg/dl Est Cr Clr Drug Dosing ml/min Est GFR ( Amer) ml/min Est GFR (Non-Af Amer) ml/min BUN/Creatinine Ratio (10-20) Glucose (70-99(Fasting)) mg/dl Calcium (8.6-10.3) mg/dl Magnesium (1.7-2.4) mg/dl Total Bilirubin (0.2-1.0) mg/dl Direct Bilirubin (0-0.2) mg/dl AST (13-39) U/L ALT (7-52) U/L Alkaline Phosphatase (34-104) U/L Troponin I High Sens (0-14) pg/ml Total Protein (6.0-8.3) gm/dl Albumin (3.4-5.0) gm/dl SARS-CoV-2, RNA, NAAT NEGATIVE (NEGATIVE) 05/12/22 Range/Units 11:13 WBC (4.8-10.8) K/ul RBC (4.20-5.40) M/uL Hgb (12.0-16.0) g/dl Hct (37.0-47.0) % MCV (80.0-100.0) fL MCH (25.0-34.0) pg MCHC (32.0-36.0) g/dL RDW Std Deviation (36.4-46.3) fL RDW Coeff of Jazmin (11.5-14.5) % Plt Count (130-400) K/uL MPV (9.4-12.4) fL Immature Gran % (Auto) % Neut % (Auto) % Lymph % (Auto) % Lane % (Auto) % Eos % (Auto) % Baso % (Auto) % Neut # (Auto) (1.40-6.50) K/uL Lymph # (Auto) (1.2-3.4) K/uL Lane # (Auto) (0.11-0.59) K/uL Eos # (Auto) (0-0.50) K/uL Baso # (Auto) (0-0.2) K/uL Immature Gran # (Auto) (0.01-0.20) K/uL PT (9.0-12.0) Seconds INR (0.9-1.1) APTT (21.0-31.0) Seconds PTT Ratio Sodium 141 (136-145) mmol/L Potassium 3.8 (3.5-5.1) mmol/L Chloride 107 (98-107) mmol/L Carbon Dioxide 28 (21-32) mmol/L Anion Gap 6 (3-11) BUN 18 (6-23) mg/dl Creatinine 0.73 (0.6-1.2) mg/dl Est Cr Clr Drug Dosing 65.3 ml/min Est GFR ( Amer) 90.2 ml/min Est GFR (Non-Af Amer) 77.8 ml/min BUN/Creatinine Ratio 24.7 H (10-20) Glucose 90 (70-99(Fasting)) mg/dl Calcium 9.6 (8.6-10.3) mg/dl Magnesium 2.0 (1.7-2.4) mg/dl Total Bilirubin 0.5 (0.2-1.0) mg/dl Direct Bilirubin 0.1 (0-0.2) mg/dl AST 18 (13-39) U/L ALT 11 (7-52) U/L Alkaline Phosphatase 93 (34-104) U/L Troponin I High Sens 5.5 (0-14) pg/ml Total Protein 7.2 (6.0-8.3) gm/dl Albumin 4.2 (3.4-5.0) gm/dl SARS-CoV-2, RNA, NAAT (NEGATIVE) Administered Medications Lorazepam (Lorazepam 2 Mg/1 Ml Vial) 1 mg IV ONCE PRN PRN Reason: pretreat for MRI Stop: 06/11/22 13:27 Last Admin: 05/12/22 16:21 Dose: 1 mg Documented By: Admin: 05/12/22 14:58 Dose: 1 mg Documented By: KJS Imaging Data Radiologist's Impression: Head CT 05/12/22 10:49 CT head/brain wo con CLINICAL HISTORY: right leg weakness Technique: Contiguous axial CT images of the head were acquired from the base of the skull to the vertex without intravenous contrast administration. Images were viewed in brain, subdural and bone windows. Automated dose lowering techniques and/or adjustment according to patient size were utilized for this exam. Comparison: Comparison is made to CT head 08/10/2015 Findings: Areas of decreased attenuation are present in the periventricular and subcortical white matter bilaterally consistent with small vessel ischemic disease. Generalized cerebral atrophy with commensurate enlargement of the ventricles, sulci, and cisterns is also present. There is no acute intracranial hemorrhage or evidence of acute territorial infarction. No shift of the midline structures, mass effect, or extra-axial abnormalities are shown. Atherosclerotic calcifications are present in the intracranial segments of the internal carotid arteries. Imaged portions of the paranasal sinuses and mastoid air cells are clear. The orbits appear normal. There are no acute fractures of the calvaria or scalp swelling. Impression: No acute intracranial hemorrhage, no evidence of acute territorial infarction or other acute intracranial disease process. ACT 112: Negative or not required by law. Electronically signed by: Mehran Chávez M.D. 05/12/2022 11:[address] 05/12/22 10:49 CT lumbar spine wo con CLINICAL HISTORY: right leg weakness TECHNIQUE: Multidetector row helical CT of the lumbar spine was performed without administration of intravenous contrast. Coronal and sagittal reformations were obtained. Automated dose lowering techniques and/or adjustment according to patient size were utilized for this exam. CT DOSE: 1470.27 mGy.cm Comparison: None available at the time of this dictation. FINDINGS: For counting purposes, the last complete intervertebral disc space is considered L5-S1. No acute fractures are identified. Vertebral body heights and disk spaces are well maintained. Vertebral body alignment is within normal limits. Surrounding soft tissues are unremarkable. IMPRESSION: No evidence of acute bony injury. Of note, MRI is a more sensitive modality for neuroforaminal or canal stenosis. ACT 112: Negative or not required by law. Electronically signed by: Mehran hCávez M.D. 05/12/2022 12:05 PM Discharge Plan Visit Data Chief Complaint: Leg Injury/Pain Stated Complaint: TINGLING, UNABLE TO BEAR WEIGHT. R LEG ED Provider: Johnathan Escamilla Discharge Problem: Right leg weakness, Paresthesia of right leg Patient Disposition: Admitted As Inpatient Discharge Instructions Interventions: ED Discharge Assessment Last Done: 05/12/22 14:24
[2022-05-12 11:53] LABS: Albumin Level 4.2 gm/dl (3.4-5.0); BUN Creatinine Ratio 24.7 (10-20); Bilirubin Direct 0.1 mg/dl (0-0.2); Bilirubin,Total 0.5 mg/dl (0.2-1.0); Calcium 9.6 mg/dl (8.6-10.3); Creatinine Clr Calc Pharmacy 65.3 ml/min; Est GFR (African American) 90.2 ml/min; Est GFR (Non-African American) 77.8 ml/min; Potassium 3.8 mmol/L (3.5-5.1); Total Protein 7.2 gm/dl (6.0-8.3)
--- NOTE | 2022-05-12 11:55 | CT Scan Report ---
CT head/brain wo con CLINICAL HISTORY: right leg weakness Technique: Contiguous axial CT images of the head were acquired from the base of the skull to the stella rubi without intravenous contrast administration. Images were viewed in brain, subdural and bone [facility]. Automated dose lowering techniques and/or adjustment according to patient size were utilized for this exam. Comparison: Comparison is made to CT head 08/10/2015 Findings: Areas of decreased attenuation are present in the periventricular and subcortical white matter bilate rally consistent with small vessel ischemic disease. Generalized cerebral atrophy with commensurate e nlargement of the ventricles, sulci, and cisterns is also present. There is no acute intracranial hem orrhage or evidence of acute territorial infarction. No shift of the midline structures, mass effect, or extra-axial abnormalities are shown. Atherosclerotic calcifications are present in the intracran ial segments of the internal carotid arteries. Imaged portions of the paranasal sinuses and mastoid air cells are clear. The orbits appear normal. There are no acute fractures of the calvaria or scalp swelling. Impression: No acute intracranial hemorrhage, no evidence of acute territorial infarction or other acute intracra nial disease process. ACT 112: Negative or not required by law. Electronically signed by: Mehran Chávez M.D. 05/12/2022 11:54 AM
[2022-05-12 11:57] LABS: Troponin I High Sensitivity 5.5 pg/ml (0-14)
[2022-05-12 12:01] LABS: Basophils # (auto) 0.06 K/uL (0-0.2); Eosinophils # (auto) 0.52 K/uL (0-0.50); Eosinophils % (auto) 8.7 %; Hematocrit (blood only) 40.8 % (37.0-47.0); Hemoglobin 13.2 g/dl (12.0-16.0); Immature Granulocytes # (auto) 0.01 K/uL (0.01-0.20); Immature Granulocytes % (auto) 0.2 %; Lymphocytes % (auto) 20.1 %; Mean Corpuscular Hemoglobin 28.9 pg (25.0-34.0); Mean Corpuscular Hgb Conc 32.4 g/dL (32.0-36.0); Mean Corpuscular Volume 89.5 fL (80.0-100.0); Mean Platelet Volume 10.6 fL (9.4-12.4); Monocytes # (auto) 0.45 K/uL (0.11-0.59); Monocytes % (auto) 7.6 %; Neutrophils # (auto) 3.72 K/uL (1.40-6.50); Neutrophils % (auto) 62.4 %; Platelet Count 292 K/uL (130-400); RDW Coefficient of Variation 12.5 % (11.5-14.5); RDW Standard Deviation 41.1 fL (36.4-46.3); Red Blood Count 4.56 M/uL (4.20-5.40); White Blood Count 5.96 K/ul (4.8-10.8)
--- NOTE | 2022-05-12 12:07 | CT Scan Report ---
CT lumbar spine wo con CLINICAL HISTORY: right leg weakness TECHNIQUE: Multidetector row helical CT of the lumbar spine was performed without administration of i ntravenous contrast. Coronal and sagittal reformations were obtained. Automated dose lowering techniq ues and/or adjustment according to patient size were utilized for this exam. CT DOSE: 1470.27 mGy.cm Comparison: None available at the time of this dictation. FINDINGS: For counting purposes, the last complete intervertebral disc space is considered L5-S1. No acute fractures are identified. Vertebral body heights and disk spaces are well maintained. Verteb ral body alignment is within normal limits. Surrounding soft tissues are unremarkable. IMPRESSION: No evidence of acute bony injury. Of note, MRI is a more sensitive modality for neuroforaminal or can al stenosis. ACT 112: Negative or not required by law. Electronically signed by: Mehran Chávez M.D. 05/12/2022 12:05 PM
[2022-05-12 12:10] LABS: INR 0.9 (0.9-1.1); Partial Thromboplastin Ratio 0.9; Partial Thromboplastin Time 23.9 Seconds (21.0-31.0)
--- NOTE | 2022-05-12 12:52 | History & Physical Report ---
Date of Service May 12, 2022 Assessment & Plan (1) Right leg weakness: Plan: R Leg Weakness, ?CVA, Lumbar Stenosis vs Sciatica/Piriformis Syndrome - Patient has had pain in her right hip after arthroscopy, and has a hxsciatica which generally goes down to her knee. Current weakness is very different from her normal symptoms per pt. On exam she has associated tenderness of the right lower and mid lumbar spine. In the bed hip flexion 4/5, ankle dorsiflexion 5/5 on the right; left hip flexion and ankle dorsiflexion/plantarflexion 5/5. Sensation is qualitatively diminished in the right and noticibly reduced in anterior thigh, leg, dorsal foot, and plantar foot.. She is very tender at the piriformis but palption does not reproduce/worsen radicular symptoms. Given back pain, weakness, and extension of radicular pain recommend evaluating for both stroke pathology in addition to lumbar spine with MRI. Differential diagnosis does include sciatica/piriformis syndrome; however in the setting of sudden onset of reproducible focal weakness this should be a diagnosis of exclusion and lumbar stenosis/CVA should be ruled out. Out of the window for TPA. Aspirin initially deferred in ER due to history of aspirin allergy with hives, discussed risk/benefits of Plavix. Due to her extremely localized symptoms and back pain will temporarily defer Plavix load until lumbar spine is back in the event that her symptoms are caused by stenosis; if stenosis not present we will load with Plavix 300 and then continue 75 mg daily. - Permissive HTN, resume Amlodipine-olmesartan if hypertensive in AM. Labetalol IV as needed if greater than 220/110 - Hx HTN, HLD. No Hx TIA/CVD/CAD/DVT/PE - Lipids pending -High-sensitivity troponin is normal, no chest pain Echo with bubble study pending Renal function is normal, 0.73 (2) Paresthesia of right leg: Plan: As noted (3) AAA (abdominal aortic aneurysm): Plan: under yearly surveillance with [facility],, is not having shoulder blade pain or abdominal pain Continue to monitor Plan DVT prophylaxis: Lovenox Disposition: Telemetry for CVA eval Diet: CODE STATUS: Full code History of Present Illness Primary Care Provider: Michael Quach MD Crystal is an 81-year-old female with a past medical history of sciatica, hyperlipidemia on simvastatin 20 who presents after she woke up with severe paresthesia and weakness of her left leg. "Dorinda" presents today for tingling in her R leg which began this morning when she got out of bed. Had a strange pins/pinching sensation when she tried to get out of bed at 3am. Did not have any pain, just tingling lik eher leg was asleep and was very weak and could not bear weight on it 'like it was weak and about to give out.' NO symptoms laying in bed, but has numbness/tingling as soon as she stands which does through her thigh in the front and into the bottom of her foot. no headache. no vision change. no confusion/AMS. No dysarthria. No chest pain or chest pressure Has been under stress as her labrador/dog is undergoing ACL surgery. No history of stroke, TIA, AL Patient is aware that she has some type of aneursym with yearly imaging which has been stable. Pt not sure what type of aneuyrsm. Sees [facility]. Per [facility] chart review small AAA with yearly ultrasound. Medical History: Reviewed. 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 Takes a blood pressure medic Medications: Reviewed Surgical History: Reviewed Family history: Reviewed Allergies: Reviewed. Had a reaction to aspirin with hives all over her body. Has not tried since, has not used in many years Social History: Former smoker, in remission x18 years. Started smoking as a teenager, about 1ppd. Rare social etoh use. Code Status: Full Code. Allergies Allergy/AdvReac Type Severity Reaction Status Date / Time lorazepam AdvReac Intermediate WEAKNESS,LETHARGY Verified 05/12/22 14:24 X 5 DAYS codeine AdvReac Mild GI SYMPTOMS Verified 05/12/22 14:24 Home Medications Medication Instructions Recorded Confirmed Type calcium carbonate 600 mg calcium 1,200 mg PO QAM 03/30/18 05/12/22 History (1,500 mg) tablet (Calcium) cholecalciferol (vitamin D3) 25 2,000 unit PO QAM 03/30/18 05/12/22 History mcg (1,000 unit) capsule (Vitamin D3) simvastatin 20 mg tablet 20 mg PO QAM 03/30/18 05/12/22 History ascorbic acid (vitamin C) 250 mg 500 mg PO QAM 07/26/21 05/12/22 History tablet (Vitamin C) amlodipine 5 mg-olmesartan 20 mg 1 tab PO DAILY 05/12/22 05/12/22 History tablet citalopram 10 mg tablet 10 mg PO DAILY 05/12/22 05/12/22 History Past Med/Surg History Medical History (Updated 05/12/22 @ 13:33 by Chang Weaver MD) AAA (abdominal aortic aneurysm) PCP monitoring -- last evaluated approx 1 year ago [place] Foot fracture hx multiple fractures Hand fracture hx multiple hand bones History of basal cell carcinoma History of colon polyps History of squamous cell carcinoma History of trigger finger Hyperlipidemia Sleep apnea CPAP Surgical History History of appendectomy History of arthroscopy Rt hip History of basal cell carcinoma (BCC) excision History of cataract surgery History of cholecystectomy History of colonoscopy History of dilatation and curettage History of laparoscopic adjustable gastric banding History of squamous cell carcinoma excision History of tonsillectomy S/P carpal tunnel release Family History Father Cardiac disorder Other Arthritis No family history of adverse response to anesthesia Social History Smoking Status: Never smoker Cigarettes Per Day: QUIT 14 YEARS AGO, HX OF 1PPD; Second Hand Exposure: No; Hx Alcohol Use: Yes Hx Substance Use: No Preferred Language: Amharic Communication Ability: Effective Vice Admiral Required: No Beliefs That Will Affect Care: None Current Living Situation: Alone current occupational status: retired Feels Safe at Home: Yes Assistive Devices: CPAP Review of Systems Review of Systems: All systems reviewed & are unremarkable except as noted in HPI & below Physical Exam Physical Exam: General: A&Ox3. NAD. Cooperative. HEENT: Atraumatic, normocephalic. Pulm: CTAB A&P. -wheezes, -rales, -rhonchi. Symmetrical chest rise. No increased work of breathing. No respiratory distress. Cardiac: RRR, -mrg. Radial pulses intact and symmetrical. Abdominal: Nontender, nondistended, soft. BS present. CRANIAL NERVES: II: Pupils equal and reactive, no relative afferent pupillary defect, no VF cuts III, IV, : EOM intact, no gaze preference or deviation, no nystagmus. V: normal sensation in V1, V2, and V3 segments bilaterally VII: no asymmetry, no nasolabial fold flattening VIII: normal hearing to speech IX, X: normal palatal elevation, no uvular deviation XI: 5/5 head turn and 5/5 shoulder shrug bilaterally XII: midline tongue protrusion MOTOR: RUE: 5/5 shipping & receiving lead strength, finger flexion/extension, interosseus LUE: 5/5 shipping & receiving lead strength, finger flexion/extension, interosseus RLE: 4/5 to hip flexion/extension, knee flexion, ankle dorsiflexion/plantarflexion LLE: 5/5 to hip flexion/extension, knee flexion, ankle dorsiflexion/plantarflexion no clonus SENSORY: RLE with intact but greatly diminished sensation to soft touch compared to LLE. No saddle anesthesia. Spine: R lumbar paraspinal TTP. MSK: Prominent TTP on R piriformis syndrome which does not reporduce neuropathy extending to the leg/toes Results & Data Results & Data Vital Signs (Past 12 Hours) Vital Signs Temp Pulse Pulse Resp BP BP Pulse Ox 05/12/22 12:44 154/79 H 05/12/22 12:44 60 18 154/79 H 95 05/12/22 12:00 59 L 20 95 05/12/22 11:00 72 23 95 05/12/22 12:17 58 L 05/12/22 10:50 55 L 18 174/90 H 97 05/12/22 10:23 36.2 C L 70 18 143/83 H 96 O2 Del Method 05/12/22 12:44 05/12/22 12:44 Room Air 05/12/22 12:00 Room Air 05/12/22 11:00 Room Air 05/12/22 12:17 05/12/22 10:50 Room Air 05/12/22 10:23 Room Air PG Care Time/CCT Total # of Minutes Spent Total Time Spent with Patient: Total time spent is greater than 50% in coordination of care (as documented) at patient's floor/unit and/or counseling patient: Coding Level of Care Code 57553 INT INP/OBS CARE 3/75MIN Diagnoses Right leg weakness R29.898 Paresthesia of right leg R20.2 AAA (abdominal aortic aneurysm) I71.4
--- NOTE | 2022-05-12 13:10 | Electrocardiogram Report ---
Test Reason : Blood Pressure : / mmHG Vent. Rate : 071 BPM Atrial Rate : 071 BPM P-R Int : 202 ms QRS Dur : 136 ms QT Int : 432 ms P-R-T Axes : 115 028 022 degrees QTc Int : 469 ms Normal sinus rhythm with sinus arrhythmia Right bundle branch block Abnormal ECG When compared with ECG of 09-JAN-2014 10:43, No significant change was found Confirmed by Jhonatan Calderón ([id number]) on 05/12/2022 1:10:11 PM Referred By: REFERRED SELF Confirmed By:Jhonatan Calderón
[2022-05-12] MEDS: LORazepam 2 MG/1 ML VIAL IV PRN ×2 (14:58→16:21)
[2022-05-12] MEDS ORDERED: PHARMACIST DISCHARGE MED REC CONSULT PRN (15:54)
--- NOTE | 2022-05-12 15:57 | Magnetic Resonance Report ---
Exam(s): MRI L SPINE Without Contrast EXAM: MR Lumbar Spine Without Intravenous Contrast CLINICAL HISTORY: Reason for exam: RLE acute weakness/numbness. TECHNIQUE: Magnetic resonance images of the lumbar spine without intravenous contrast in multiple planes. COMPARISON: No relevant prior studies available. FINDINGS: Vertebrae: Minimal anterolisthesis L5-S1. Mild-moderate multilevel facet arthropathy. Spinal cord: Visualized the distal cord, conus and cauda equina are unremarkable Soft tissues: Unremarkable. DISCS/SPINAL CANAL/NEURAL FORAMINA: Mild multilevel degenerative disc disease without significant central canal or foramina stenosis. IMPRESSION: No acute findings in the lumbar spine. Multilevel degenerative disc disease and facet arthropathy. Electronically signed by: Mo Petersen M.D. 05/12/22 15:56 PM
--- NOTE | 2022-05-12 20:29 | Magnetic Resonance Report ---
MR brain wo con CLINICAL HISTORY: CVA eval, acute RLE weakness TECHNIQUE: Multiplanar and multisequence MR images of the brain were obtained without intravenous con trast. Comparison: None available at the time of this dictation. FINDINGS: There is a punctate infarct in the left posterior frontal lobe (series 4 image 18). Ex vacuo ventricu lomegaly and sulcal enlargement is noted compatible with diffuse encephalomalacia. No mass is seen. T here is no mass effect or midline shift. There is no evidence of acute intraparenchymal hemorrhage. N o extra axial fluid collections are seen. The corpus callosum, pituitary gland, and cerebellar tonsil s appear grossly unremarkable. Flow voids of the major intracranial arterial vessels are identified. The imaged portions of the para nasal sinuses, mastoid air cells, and orbits are unremarkable. IMPRESSION: Punctate infarct in the left posterior frontal lobe. No hemorrhage is seen. Age-related changes are n oted. ACT 112: Negative or not required by law. Electronically signed by: Mehran Chávez M.D. 05/12/2022 8:27 PM
--- NOTE | 2022-05-12 20:34 | Magnetic Resonance Report ---
MR angio head wo con, MR angio neck wo/w con CLINICAL HISTORY: CVA eval, acute RLE weakness TECHNIQUE: 3D time of flight MRA of the head and neck was performed without intravenous contrast. 3-D reconstructions were obtained in multiple planes. Comparison: None available at the time of this dictation. FINDINGS: Exam is highly limited by patient motion. Flow signal consistent with patency is shown within the common carotid, cervical segments of the inte rnal carotid, external carotid, and vertebral arteries. No aneurysm, dissection, hemodynamically sign ificant flow stenosis, nor occlusion is present. Flow signal is shown in the intracranial segments of the internal carotid arteries, the anterior, mid dle and posterior cerebral arteries, the anterior and posterior communicating arteries, cerebellar ar teries, the intracranial segments of the vertebral arteries, and the basilar artery. No aneurysm, ar teriovenous malformation, dissection, nor hemodynamically significant flow stenosis is shown. Assessment of stenosis of the internal carotid arteries is based on NASCET criteria. IMPRESSION: Highly limited exam with no evidence of intracranial or cervical stenosis or aneurysmal disease. ACT 112: Negative or not required by law. Electronically signed by: Mehran Chávez M.D. 05/12/2022 8:31 PM
[2022-05-13 07:12] LABS: Basophils # (auto) 0.07 K/uL (0-0.2); Basophils % (auto) 1.1 %; Eosinophils # (auto) 0.67 K/uL (0-0.50); Eosinophils % (auto) 10.6 %; Hematocrit (blood only) 38.9 % (37.0-47.0); Hemoglobin 12.8 g/dl (12.0-16.0); Immature Granulocytes # (auto) 0.01 K/uL (0.01-0.20); Immature Granulocytes % (auto) 0.2 %; Lymphocytes # (auto) 1.48 K/uL (1.2-3.4); Lymphocytes % (auto) 23.5 %; Mean Corpuscular Hemoglobin 29.2 pg (25.0-34.0); Mean Corpuscular Hgb Conc 32.9 g/dL (32.0-36.0); Mean Corpuscular Volume 88.6 fL (80.0-100.0); Mean Platelet Volume 10.7 fL (9.4-12.4); Monocytes # (auto) 0.64 K/uL (0.11-0.59); Monocytes % (auto) 10.1 %; Neutrophils # (auto) 3.44 K/uL (1.40-6.50); Neutrophils % (auto) 54.5 %; Platelet Count 262 K/uL (130-400); RDW Coefficient of Variation 12.6 % (11.5-14.5); RDW Standard Deviation 41.5 fL (36.4-46.3); Red Blood Count 4.39 M/uL (4.20-5.40); White Blood Count 6.31 K/ul (4.8-10.8)
[2022-05-13 07:27] LABS: BUN Creatinine Ratio 28.4 (10-20); Calcium 9.2 mg/dl (8.6-10.3); Chol HDL Ratio 2.8 (0-5); Creatinine Clr Calc Pharmacy 70.3 ml/min; Est GFR (African American) 96.2 ml/min; Potassium 4.1 mmol/L (3.5-5.1)
[2022-05-13] MEDS: ATORVASTATIN 40 MG TAB PO SCH (08:02)
[2022-05-13] MEDS: CLOPIDOGREL BISULFATE 75 MG TAB PO SCH (08:03)
--- NOTE | 2022-05-13 08:09 | Hospitalist Progress Note ---
Date of Service May 13, 2022 Assessment & Plan (1) Acute CVA (cerebrovascular accident): Plan: - Presented with RLE weakness and decreased sensation, has a history of some intermittent radicular symptoms - CT Head / L spine by ER provider without acute pathology - MR Brain/L spine reveals R posterior frontal acute infarct, consistent with acute CVA, also some multilevel L spine DJD - Lipid panel with LDL 85, was on simvastatin, transitioned to atorvastatin 40mg daily - ASA/Plavix started - A1c pending - Echo with bubble study ordered, no PFO - No evidence of A-fib on telemetry so far, continue to monitor - Resume home antihypertensives/in-house formulary equivalents - Neurology consulted, appreciate recommendations, will have outpatient follow- up - PT and OT recommend home with home health physical therapy - Anticipate discharge home tomorrow as long as patient's clinical status remains stable (2) Right leg weakness: Plan: - Multilevel DJD but no canal/foraminal stenosis, weakness suspected to be due to CVA - See above (3) AAA (abdominal aortic aneurysm): Plan: Under yearly surveillance with [facility], is not having shoulder blade pain or abdominal pain Continue to monitor outpatient acute inpatient interventions Plan DVT prophylaxis: Lovenox for DVT ppx Disposition: Telemetry Diet: CODE STATUS: Full code Admission and Anticipated Discharge Date Admission Date: May 12, 2022 Subjective Patient with no acute events overnight, no longer has paresthesias in the right lower extremity but still with some medial right lower leg pain, described not as a shooting pain but hard to qualify, not in the posterior leg to the calf, vague, mild and improved from yesterday. Patient denies shortness of breath, chest pain, abdominal pain, nausea. Was able to walk with a walker without much difficulty. Review of Systems Review of Systems: All systems reviewed & are unremarkable except as noted in Subjective Physical Exam Constitutional: WD/WN, vitals as above Respiratory: normal respiratory effort, lungs clear to auscultation Cardiovascular: RRR, no murmur, no edema Gastrointestinal (Abdomen): normal bowel sounds, soft, nontender, no hepatosplenomegaly Skin: no rashes, warm and dry Neurologic: PERRL, EOMI, accommodation nl, no face palsy, no dysarthria Subjective sensation to bilateral lower extremities is intact and symmetric, normal muscle bulk, no atrophy Psychiatric: A+Ox3, euthymic affect Results & Data Results & Data Vital Signs (Past 12 Hours) Vital Signs Temp Pulse Pulse Resp BP Pulse Ox O2 Del Method 05/13/22 07:39 36.7 C 72 19 117/75 94 Room Air 05/13/22 02:45 36.7 C 60 20 129/67 97 Room Air 05/12/22 23:51 56 L 05/12/22 23:00 36.6 C 57 L 18 120/76 94 Room Air 05/12/22 20:43 Room Air PG Care Time/CCT Total # of Minutes Spent Total Time Spent with Patient: Total time spent is greater than 50% in coordination of care (as documented) at patient's floor/unit and/or counseling patient: Coding Level of Care Code 31888 SUB INP/OBS CARE 3/50MIN Diagnoses Acute CVA (cerebrovascular accident) I63.9 Right leg weakness R29.898 AAA (abdominal aortic aneurysm) I71.4
[2022-05-13] MEDS: ASPIRIN 81 MG ECTAB PO SCH (09:15)
[2022-05-13] MEDS: ENOXAPARIN INJ 40 MG/0.4 ML SYR SQ SCH (09:16)
--- NOTE | 2022-05-13 10:34 | XCELERA ---
[id number]
--- NOTE | 2022-05-13 15:00 | Neurology Consultation ---
Date of Consultation May 13, 2022 Assessment & Plan (1) Acute CVA (cerebrovascular accident): Impression: The patient woke up with new onset right leg weakness and numbness yesterday morning. She was outside of thrombolytic treatment window. Imaging studies showed small left frontal acute ischemic stroke. The most likely underlying etiology is atherothrombotic event versus small vessel disease. Cardioembolic event is unlikely. The patient has recovered well clinically but she is still not back to her baseline. Other stroke work-up including echocardiogram, telemetry monitoring, lipid panel have been unremarkable. The patient was started on double antiplatelet treatment without bolus as well as we increased statin dosage to Lipitor 40 mg. The patient has history of obstructive sleep apnea but uses CPAP regularly. Her blood pressure control has been satisfactory. Recommendations/plan: There is no indication for further permissive hypertension. The patient should start on home medications. Goal blood pressure is below 130/80. We will keep the patient on aspirin 81 mg and Plavix 75 mg daily. There is no indication for bolus. The patient will continue using Lipitor 40 mg at bedtime. Goal LDL level is lower than 70. Physical therapy and Occupational Therapy evaluations. Telemetry monitoring during hospital stay. The patient will continue using CPAP for obstructive sleep apnea which is one of the stroke risk factor. Regular exercise, and diet modifications is explained to the patient. If the patient stays stable, then she can be discharged home tomorrow. Outpatient physical therapy. I will contact with [facility] neurology to set up a follow-up appointment in clinic. (2) Right leg weakness: Impression: Secondary to CVA (3) Paresthesia of right leg: Impression: Secondary to CVA (4) ILIA on CPAP: Impression: The patient has established diagnosis of obstructive sleep apnea and uses CPAP regularly. (5) AAA (abdominal aortic aneurysm): Plan As seen above. Thank you for the consultation. History of Present Illness Reason for Consultation: Right leg weakness, CVA Requesting Physician: Kendy Davis DO Attending Physician: Kendy Davis DO History of Present Illness The patient is a 81-year-old right-handed female, who woke up yesterday morning, with new right leg weakness and numbness. The patient was still able to walk but she was not stable during ambulation, with buckling knee. Because she was suffering from sciatica before, initially, she thought that it was a flareup of sciatica, however, she was not having pain. After talking to her primary care physician, she was referred to emergency department. Initial head CT was unremarkable. Apparently, the patient was outside of thrombolytic treatment window. She was started on aspirin and Plavix was added later on. She was also started on Lipitor and was admitted to hospital for stroke work-up. Telemetry monitoring has been showing sinus rhythm. Echocardiogram was unremarkable and did not show patent foramen ovale or obvious intracardiac embolic source. The patient's blood pressure has been well controlled. Since admission, the patient has noticed significant improvement of right leg weakness and numbness. She can ambulate independently but still, she she is not back to her baseline. She denies having stroke symptoms in the past. She has no history of palpitations, or racing heartbeats feeling. She has obstructive sleep apnea and uses CPAP regularly. She has been physically active. I have reviewed the patient's chart including imaging studies and visualized them personally. I have discussed the case with the patient and answered her questions in detail. Allergies Allergy/AdvReac Type Severity Reaction Status Date / Time lorazepam AdvReac Intermediate WEAKNESS,LETHARGY Verified 05/12/22 14:24 X 5 DAYS codeine AdvReac Mild GI SYMPTOMS Verified 05/12/22 14:24 Home Medications Medication Instructions Recorded Confirmed Type calcium carbonate 600 mg calcium 1,200 mg PO QAM 03/30/18 05/12/22 History (1,500 mg) tablet (Calcium) cholecalciferol (vitamin D3) 25 2,000 unit PO QAM 03/30/18 05/12/22 History mcg (1,000 unit) capsule (Vitamin D3) simvastatin 20 mg tablet 20 mg PO QAM 03/30/18 05/12/22 History ascorbic acid (vitamin C) 250 mg 500 mg PO QAM 07/26/21 05/12/22 History tablet (Vitamin C) amlodipine 5 mg-olmesartan 20 mg 1 tab PO DAILY 05/12/22 05/12/22 History tablet citalopram 10 mg tablet 10 mg PO DAILY 05/12/22 05/12/22 History Patient History Medical History AAA (abdominal aortic aneurysm) PCP monitoring -- last evaluated approx 1 year ago [place] Foot fracture hx multiple fractures Hand fracture hx multiple hand bones History of basal cell carcinoma History of colon polyps History of squamous cell carcinoma History of trigger finger Hyperlipidemia Sleep apnea CPAP Surgical History History of appendectomy History of arthroscopy Rt hip History of basal cell carcinoma (BCC) excision History of cataract surgery History of cholecystectomy History of colonoscopy History of dilatation and curettage History of laparoscopic adjustable gastric banding History of squamous cell carcinoma excision History of tonsillectomy S/P carpal tunnel release Family History Father Cardiac disorder Other Arthritis No family history of adverse response to anesthesia Social History Smoking Status: Former smoker Cigarettes Per Day: QUIT 14 YEARS AGO, HX OF 1PPD; Smoking End Date: 18 years ago; Second Hand Exposure: No; Hx Alcohol Use: Yes Alcohol type: wine Hx Substance Use: No Preferred Language: Bahraini Communication Ability: Effective 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 HENT: Normal exam with inspection. CV: Hearth rhythm is regular. Neck: Supple, no carotid bruits. Lungs: Non-labored and comfortable breathing. Abdomen: Soft, non-tender, non-distended. Skin: No rash or ecchymosis. Extremities: No edema or cyanosis NEUROLOGICAL EXAMINATION: Mental Status: Alert and oriented to place, person and time. Cranial Nerves: II-XII are intact. No nystagmus. Funduscopy: Normal looking optic discs. Motor: 5/5 in all extremities without asymmetry. Tone: Normal without spasticity or rigidity. Sensory: Intact to all sensory modalities with exam other than right leg subjective dysesthesia Coordination: No dysmetria with FTN and HTS testing. Speech: Fluent. Comprehension is intact. Gait: The patient can ambulate independently. She is still slightly unsteady during ambulation, due to unusual feeling of right leg. No ataxia or other abnormal walking pattern. Musculoskeletal: Normal muscle bulk, no atrophy. DTRs: 2+ in UE and knees and 1+ in ankles. No Babinsky. Results & Data Vital Signs (Past 12 Hours) Vital Signs Temp Pulse Pulse Resp BP Pulse Ox O2 Del Method 05/13/22 11:37 36.5 C 63 18 136/79 94 Room Air 05/13/22 09:36 54 L 05/13/22 07:39 36.7 C 72 19 117/75 94 Room Air 05/13/22 02:45 36.7 C 60 20 129/67 97 Room Air Laboratory Results Laboratory Results - last 24 hr 05/13/22 05/13/22 05/13/22 05:42 05:42 05:42 WBC 6.31 RBC 4.39 Hgb 12.8 Hct 38.9 MCV 88.6 MCH 29.2 MCHC 32.9 RDW Std Deviation 41.5 RDW Coeff of Jazmin 12.6 Plt Count 262 MPV 10.7 Immature Gran % (Auto) 0.2 Neut % (Auto) 54.5 Lymph % (Auto) 23.5 Falls % (Auto) 10.1 Eos % (Auto) 10.6 Baso % (Auto) 1.1 Neut # (Auto) 3.44 Lymph # (Auto) 1.48 Falls # (Auto) 0.64 H Eos # (Auto) 0.67 H Baso # (Auto) 0.07 Immature Gran # (Auto) 0.01 Sodium 141 Potassium 4.1 Chloride 109 H Carbon Dioxide 27 Anion Gap 5 BUN 19 Creatinine 0.67 Est Cr Clr Drug Dosing 70.3 Est GFR ( Amer) 96.2 Est GFR (Non-Af Amer) 83.0 BUN/Creatinine Ratio 28.4 H Glucose 77 Estimat Average Glucose Pending Hemoglobin A1c Pending Calcium 9.2 Magnesium 2.0 Triglycerides 95 Cholesterol 163 LDL Cholesterol, Calc 85 VLDL Cholesterol, Calc 19 HDL Cholesterol 59 Cholesterol/HDL Ratio 2.[address] 05/12/22 10:49 CT head/brain wo con CLINICAL HISTORY: right leg weakness Technique: Contiguous axial CT images of the head were acquired from the base of the skull to the vertex without intravenous contrast administration. Images were viewed in brain, subdural and bone windows. Automated dose lowering techniques and/or adjustment according to patient size were utilized for this exam. Comparison: Comparison is made to CT head 08/10/2015 Findings: Areas of decreased attenuation are present in the periventricular and subcortical white matter bilaterally consistent with small vessel ischemic disease. Generalized cerebral atrophy with commensurate enlargement of the ventricles, sulci, and cisterns is also present. There is no acute intracranial hemorrhage or evidence of acute territorial infarction. No shift of the midline structures, mass effect, or extra-axial abnormalities are shown. Atherosclerotic calcifications are present in the intracranial segments of the internal carotid arteries. Imaged portions of the paranasal sinuses and mastoid air cells are clear. The orbits appear normal. There are no acute fractures of the calvaria or scalp swelling. Impression: No acute intracranial hemorrhage, no evidence of acute territorial infarction or other acute intracranial disease process. ACT 112: Negative or not required by law. Electronically signed by: Mehran Chávez M.D. 05/12/2022 11:[address] 05/12/22 10:49 CT lumbar spine wo con CLINICAL HISTORY: right leg weakness TECHNIQUE: Multidetector row helical CT of the lumbar spine was performed without administration of intravenous contrast. Coronal and sagittal reformations were obtained. Automated dose lowering techniques and/or adjustment according to patient size were utilized for this exam. CT DOSE: 1470.27 mGy.cm Comparison: None available at the time of this dictation. FINDINGS: For counting purposes, the last complete intervertebral disc space is considered L5-S1. No acute fractures are identified. Vertebral body heights and disk spaces are well maintained. Vertebral body alignment is within normal limits. Surrounding soft tissues are unremarkable. IMPRESSION: No evidence of acute bony injury. Of note, MRI is a more sensitive modality for neuroforaminal or canal stenosis. ACT 112: Negative or not required by law. Electronically signed by: Mehran Chávez M.D. 05/12/2022 12:05 PM Lumbar Spine MRI 05/12/22 13:26 Exam(s): MRI L SPINE Without Contrast EXAM: MR Lumbar Spine Without Intravenous Contrast CLINICAL HISTORY: Reason for exam: RLE acute weakness/numbness. TECHNIQUE: Magnetic resonance images of the lumbar spine without intravenous contrast in multiple planes. COMPARISON: No relevant prior studies available. FINDINGS: Vertebrae: Minimal anterolisthesis L5-S1. Mild-moderate multilevel facet arthropathy. Spinal cord: Visualized the distal cord, conus and cauda equina are unremarkable Soft tissues: Unremarkable. DISCS/SPINAL CANAL/NEURAL FORAMINA: Mild multilevel degenerative disc disease without significant central canal or foramina stenosis. IMPRESSION: No acute findings in the lumbar spine. Multilevel degenerative disc disease and facet arthropathy. Electronically signed by: Mo Petersen M.D. 05/12/22 15:56 PM Brain MRI 05/12/22 15:54 MR brain wo con CLINICAL HISTORY: CVA eval, acute RLE weakness TECHNIQUE: Multiplanar and multisequence MR images of the brain were obtained without intravenous contrast. Comparison: None available at the time of this dictation. FINDINGS: There is a punctate infarct in the left posterior frontal lobe (series 4 image 18). Ex vacuo ventriculomegaly and sulcal enlargement is noted compatible with diffuse encephalomalacia. No mass is seen. There is no mass effect or midline shift. There is no evidence of acute intraparenchymal hemorrhage. No extra axial fluid collections are seen. The corpus callosum, pituitary gland, and cerebellar tonsils appear grossly unremarkable. Flow voids of the major intracranial arterial vessels are identified. The imaged portions of the paranasal sinuses, mastoid air cells, and orbits are unremarkable. IMPRESSION: Punctate infarct in the left posterior frontal lobe. No hemorrhage is seen. Age- related changes are noted. ACT 112: Negative or not required by law. Electronically signed by: Mehran Chávez M.D. 05/12/2022 8:27 PM Head MRA 05/12/22 15:54 MR angio head wo con, MR angio neck wo/w con CLINICAL HISTORY: CVA eval, acute RLE weakness TECHNIQUE: 3D time of flight MRA of the head and neck was performed without intravenous contrast. 3-D reconstructions were obtained in multiple planes. Comparison: None available at the time of this dictation. FINDINGS: Exam is highly limited by patient motion. Flow signal consistent with patency is shown within the common carotid, cervical segments of the internal carotid, external carotid, and vertebral arteries. No aneurysm, dissection, hemodynamically significant flow stenosis, nor occlusion is present. Flow signal is shown in the intracranial segments of the internal carotid arteries, the anterior, middle and posterior cerebral arteries, the anterior and posterior communicating arteries, cerebellar arteries, the intracranial segments of the vertebral arteries, and the basilar artery. No aneurysm, arteriovenous malformation, dissection, nor hemodynamically significant flow stenosis is shown. Assessment of stenosis of the internal carotid arteries is based on NASCET criteria. IMPRESSION: Highly limited exam with no evidence of intracranial or cervical stenosis or aneurysmal disease. ACT 112: Negative or not required by law. Electronically signed by: Mehran Chávez M.D. 05/12/2022 8:31 PM Neck MRA 05/12/22 15:54 MR angio head wo con, MR angio neck wo/w con CLINICAL HISTORY: CVA eval, acute RLE weakness TECHNIQUE: 3D time of flight MRA of the head and neck was performed without intravenous contrast. 3-D reconstructions were obtained in multiple planes. Comparison: None available at the time of this dictation. FINDINGS: Exam is highly limited by patient motion. Flow signal consistent with patency is shown within the common carotid, cervical segments of the internal carotid, external carotid, and vertebral arteries. No aneurysm, dissection, hemodynamically significant flow stenosis, nor occlusion is present. Flow signal is shown in the intracranial segments of the internal carotid arteries, the anterior, middle and posterior cerebral arteries, the anterior and posterior communicating arteries, cerebellar arteries, the intracranial segments of the vertebral arteries, and the basilar artery. No aneurysm, arteriovenous malformation, dissection, nor hemodynamically significant flow stenosis is shown. Assessment of stenosis of the internal carotid arteries is based on NASCET criteria. IMPRESSION: Highly limited exam with no evidence of intracranial or cervical stenosis or aneurysmal disease. ACT 112: Negative or not required by law. Electronically signed by: Mehran Chávez M.D. 05/12/2022 8:31 PM TTE--The left ventricle was normal in structure and function with ejection fraction of 65 to 70%. There was grade 1 diastolic dysfunction. Ventricular and atrial sizes were normal. There was no evidence of patent foramen ovale.
[2022-05-14 07:49] LABS: Estimated Average Glucose 111 mg/dl; Hemoglobin A1C 5.5 % (4.5-5.6)
[2022-05-14 08:05] LABS: INR 0.9 (0.9-1.1)
[2022-05-14] MEDS: ASPIRIN 81 MG ECTAB PO SCH (08:08)
[2022-05-14] MEDS: CLOPIDOGREL BISULFATE 75 MG TAB PO SCH (08:08)
[2022-05-14] MEDS: ATORVASTATIN 40 MG TAB PO SCH (08:08)
[2022-05-14] MEDS: ENOXAPARIN INJ 40 MG/0.4 ML SYR SQ SCH (08:08)
[2022-05-14] MEDS ORDERED: amLODIPine BESYLATE 5 MG TAB PO SCH (09:00)
[2022-05-14] MEDS ORDERED: LOSARTAN POTASSIUM 50 MG TAB PO SCH (09:00)
--- NOTE | 2022-05-14 09:36 | Discharge Summary ---
Discharge Summary Date of Service May 14, 2022 Admission HPI Per Admitting Provider Crystal is an 81-year-old female with a past medical history of sciatica, hyperlipidemia on simvastatin 20 who presents after she woke up with severe paresthesia and weakness of her left leg. "Dorinda" presents today for tingling in her R leg which began this morning when she got out of bed. Had a strange pins/pinching sensation when she tried to get out of bed at 3am. Did not have any pain, just tingling lik eher leg was asleep and was very weak and could not bear weight on it 'like it was weak and about to give out.' NO symptoms laying in bed, but has numbness/tingling as soon as she stands which does through her thigh in the front and into the bottom of her foot. no headache. no vision change. no confusion/AMS. No dysarthria. No chest pain or chest pressure Has been under stress as her labrador/dog is undergoing ACL surgery. No history of stroke, TIA, AL Patient is aware that she has some type of aneursym with yearly imaging which has been stable. Pt not sure what type of aneuyrsm. Sees [facility]. Per [facility] chart review small AAA with yearly ultrasound. Medical History: Reviewed. 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 Takes a blood pressure medic Medications: Reviewed Surgical History: Reviewed Family history: Reviewed Allergies: Reviewed. Had a reaction to aspirin with hives all over her body. Has not tried since, has not used in many years Social History: Former smoker, in remission x18 years. Started smoking as a teenager, about 1ppd. Rare social etoh use. Code Status: Full Code. Admission Exam Per Admitting Provider General: A&Ox3. NAD. Cooperative. HEENT: Atraumatic, normocephalic. Pulm: CTAB A&P. -wheezes, -rales, -rhonchi. Symmetrical chest rise. No increased work of breathing. No respiratory distress. Cardiac: RRR, -mrg. Radial pulses intact and symmetrical. Abdominal: Nontender, nondistended, soft. BS present. CRANIAL NERVES: II: Pupils equal and reactive, no relative afferent pupillary defect, no VF cuts III, IV, : EOM intact, no gaze preference or deviation, no nystagmus. V: normal sensation in V1, V2, and V3 segments bilaterally VII: no asymmetry, no nasolabial fold flattening VIII: normal hearing to speech IX, X: normal palatal elevation, no uvular deviation XI: 5/5 head turn and 5/5 shoulder shrug bilaterally XII: midline tongue protrusion MOTOR: RUE: 5/5 honey extractor strength, finger flexion/extension, interosseus LUE: 5/5 honey extractor strength, finger flexion/extension, interosseus RLE: 4/5 to hip flexion/extension, knee flexion, ankle dorsiflexion/plantarflexion LLE: 5/5 to hip flexion/extension, knee flexion, ankle dorsiflexion/plantarflexion no clonus SENSORY: RLE with intact but greatly diminished sensation to soft touch compared to LLE. No saddle anesthesia. Spine: R lumbar paraspinal TTP. MSK: Prominent TTP on R piriformis syndrome which does not reporduce neuropathy extending to the leg/toes Principal Dx & Hospital Course #1 = Principal Diagnosis (1) Acute CVA (cerebrovascular accident): - Presented with RLE weakness and decreased sensation, has a history of some intermittent radicular symptoms - CT Head / L spine by ER provider without acute pathology - MR Brain/L spine reveals R posterior frontal acute infarct, consistent with acute CVA, also some multilevel L spine DJD - Lipid panel with LDL 85, was on simvastatin, transitioned to atorvastatin 40mg daily - ASA/Plavix started, to continue on discharge - A1c 5.5% - Echo with bubble study ordered, no PFO - No evidence of A-fib on telemetry this admission - Resume home antihypertensives, BP normotensive - Neurology consulted, appreciate recommendations, will have outpatient follow- up - PT and OT recommend home with home health physical therapy, this was arranged by case management (2) Right leg weakness: - Multilevel DJD but no canal/foraminal stenosis, weakness suspected to be due to CVA - See above (3) AAA (abdominal aortic aneurysm): Under yearly surveillance with [facility], is not having shoulder blade pain or abdominal pain Continue to monitor outpatient Plan Disposition: Home with home health services including physical therapy Discharge Exam Constitutional WD/WN, vitals as above Neurologic Bilateral upper and lower extremities sensation intact and symmetric, no instability with gait with walker, no muscle atrophy Psychiatric A+Ox3, euthymic affect Updated Medication List Medication Instructions Recorded Confirmed Type calcium carbonate 600 mg calcium 1,200 mg PO QAM 03/30/18 05/12/22 History (1,500 mg) tablet (Calcium) cholecalciferol (vitamin D3) 25 2,000 unit PO QAM 03/30/18 05/12/22 History mcg (1,000 unit) capsule (Vitamin D3) ascorbic acid (vitamin C) 250 mg 500 mg PO QAM 07/26/21 05/12/22 History tablet (Vitamin C) amlodipine 5 mg-olmesartan 20 mg 1 tab PO DAILY 05/12/22 05/12/22 History tablet citalopram 10 mg tablet 10 mg PO DAILY 05/12/22 05/12/22 History aspirin 81 mg tablet,delayed 81 mg PO QAM #0 tabs 05/14/22 Rx release atorvastatin 40 mg tablet 40 mg PO QAM #30 tabs 05/14/22 Rx clopidogrel 75 mg tablet 75 mg PO QAM #30 tabs 05/14/22 Rx Hospital Stay Data Consultations 05/12/22 12:36 ED Decision to Admit Stat 05/13/22 08:04 Consult Neurology Routine Diagnostic Imagining Performed 05/12/22 10:49 CT head/brain wo con Stat CT lumbar spine wo con Stat 05/12/22 13:26 MR lumbar spine wo con Stat 05/12/22 15:54 MR angio head wo con Urgent MR angio neck wo/w con Routine MR brain wo con Routine Discharge Instructions Given to Patient (Per Discharging Provider) You were admitted to the hospital for weakness and found to have a stroke on the right side of your brain. Fortunately, with time and medications your symptoms got better, and you are able to walk without much trouble. Neurology saw you and recommended a few medications to start tomorrow; these include aspirin and Plavix (clopidogrel). These are medications that work together to keep your blood from being sticky, to help decrease your risk of future strokes. Plavix is a prescription, and aspirin you get over-the counter. Please take one 81 milligram (baby) aspirin daily. We recommended a change in your cholesterol medication to atorvastatin. STOP your simvastatin. Atorvastatin is one pill, once daily, for cholesterol. You did not have bad blood pressure or signs of diabetes. You can continue your other home medications. Your prescriptions were sent to [facility]. After your months supply is up, your family doctor can take over the prescriptions. You should have follow up with Neurology outside of the hospital. The office number is provided in this paperwork; please call for a follow up stroke appointment. If you have any medical concerns after discharge, please call your family doctor's office. If you have urgent or emergent medical concerns for your health or safety, please seek urgent care at the hospital. Total Time Total Time Spent Total Time Spent (In Minutes): 40 minutes Coding Level of Care Code 48459 INP/OBS DISCH >30 MIN Diagnoses Acute CVA (cerebrovascular accident) I63.9 Right leg weakness R29.898 AAA (abdominal aortic aneurysm) I71.4
[2022-05-14] MEDS ORDERED: STROKE PATIENT DISCHARGE STA (10:52)
--- NOTE | 2022-05-14 11:02 | Pharmacy Report ---
- Date of Service May 14, 2022 - Pharmacy CVA/TIA Medication Review Medications to Prevent Stroke handout has been added to the patients discharge packet. Antiplatelet(s) * Aspirin 81 mg + Plavix 75 mg Cholesterol * High intensity statin: atorvastatin 40 mg daily DVT Prophylaxis * Enoxaparin SQ Therapeutic Anticoagulation * No history of Afib/Aflutter noted Type 2 Diabetes * Patient does not have T2DM
== END 2022-05-14 12:43 | disposition home health service (06) | DRG 66 ==
LOC: ED 10:16 → 2S 13:26 → SUATTDRO 13:26 → 2S 14:24

== ENCOUNTER 2024-02-20 17:32 | Observation (INO) ==
--- NOTE | 2024-02-20 17:42 | Emergency Department Note ---
Impression & Plan BARBER (dyspnea on exertion) ED Provider Note Provider: Paxton Soriano MD CHIEF COMPLAINT: Referred by HISTORY OF PRESENT ILLNESS: Patient is a 83-year-old female past medical history of AAA, hyperlipidemia, and CVA presented here referred by her doctor. Initially presented to the ER on Saturday 3 days ago with shortness of breath. Had workup in the ER at that time including a CT of the chest without evidence of pneumonia, PE, or CHF. Patient since then has had ongoing shortness of breath even with speaking in longer sentences or bending over to tie her shoes. No chest pain. Generalized weakness. No fevers. No GI symptoms. Evidently went to [facility] cardiology saw Paula Akers as well as Dr. Villalobos and there were inferior EKG changes and they sent her here for admission and anticoagulate with heparin with the plan for heart catheterization. Patient reports this as well as her daughter and do have a call ahead note from their office indicating this. Patient again denies any chest pain at this time. Denies a history of any bleeding. Denies any history of any obstructive coronary disease/stents in the past/MT. On a low-dose aspirin. PAST MEDICAL HISTORY: As noted above MEDICATIONS: Reviewed home medications SOCIAL HISTORY: Former smoker PHYSICAL EXAM: GENERAL: alert and oriented in no acute distress on stretcher Head: normocephalic and atraumatic EYES: No injection, discharge or icterus. NECK: Trachea midline. ENT: Mucous membranes pink and moist. LUNGS: Airway patent. No retractions. Breath sounds clear but does get a bit dyspneic with longer sentences during exam. HEART: Regular rate and rhythm. No chest wall tenderness ABDOMEN: Soft and non-tender, without guarding or rebound. SKIN: Acyanotic, warm, dry, without rashes EXTREMITIES: Without swelling, tenderness or deformity NEUROLOGICAL: No focal deficits. No aphasia. No facial droop or slurred speech. Ambulatory. EK beats per minute. Normal sinus rhythm right bundle branch block. Nonspecific T wave changes without acute ST segment elevation or depression a QTc of 460. CONTINUOUS CARDIAC MONITORING: was ordered and showed a heart rate of 70s bpm in normal sinus rhythm Patient's laboratory studies and imaging reviewed. Differential includes Reactive airway disease, pneumonia, pneumothorax, COPD, CHF, infections, cardiac ischemia, pulmonary embolism, musculoskeletal, gastrointestinal, as well as other pathologies. IMPRESSION/MEDICAL DECISION MAKING: COVID test completed as well as chest x-ray and basic labs. Had a CTA 3 days ago without evidence of PE. Would not repeat at this time this is only 3 days ago. Troponin basic blood work is sent. EKG here without evidence of STEMI. Evidently evaluated in cardiology office and sent here for admission and heparinization with tentative plan for heart catheterization by their report. Patient not hypoxic at rest. Again not having active chest pain. No significant anemia or leukocytosis on blood work. Chemistries and troponin here today without significant abnormality or elevation. Given the recommendation from cardiology in the outpatient setting started on low-dose heparin drip and will have the hospitalist evaluate. Discussed with the hospitalist here for further inpatient care. DIAGNOSIS: Shortness of breath DISPOSITION: Hospitalist will evaluate Patient was agreeable with this plan. Past Med/Surg History Problem List (Updated 02/20/24 @ 18:42 by Paxton Soriano M.D.) BARBER (dyspnea on exertion) (Acute) BARBER (dyspnea on exertion) (Acute) SOB (shortness of breath) (Acute) Chronic cerebral ischemia Dyslipidemia Hypertension ILIA on CPAP AAA (abdominal aortic aneurysm) PCP monitoring -- last evaluated approx 1 year ago [place] Right leg weakness (Acute) History of colon polyps Biliary colic (Acute) Chest trauma (Acute) Cholelithiasis (Acute) Contusion of head (Acute) Fall (Acute) Encounter for pre-operative examination Medical History Acute CVA (cerebrovascular accident) History of colon polyps History of squamous cell carcinoma History of basal cell carcinoma Hand fracture hx multiple hand bones Foot fracture hx multiple fractures History of trigger finger Sleep apnea CPAP Hyperlipidemia Surgical History History of appendectomy History of arthroscopy History of basal cell carcinoma (BCC) excision History of cataract surgery History of cholecystectomy History of colonoscopy History of dilatation and curettage History of laparoscopic adjustable gastric banding History of squamous cell carcinoma excision History of tonsillectomy S/P carpal tunnel release Family History Father Cardiac disorder Other Arthritis No family history of adverse response to anesthesia Social History Smoking Status: Former smoker Tobacco Type: Cigarettes Age Started Using Tobacco: 17; Age Quit Using Tobacco: 63; packs per day: 1; Second Hand Exposure: No; Do You Dip or Chew Tobacco: No; Hx Alcohol Use: Yes Alcohol type: wine Hx Substance Use: No Preferred Language: Chinese Communication Ability: Effective Associate Broker Required: No Beliefs That Will Affect Care: None Current Living Situation: Alone current occupational status: retired 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[employer] Safe at Home: Yes Assistive Devices: None Allergies Allergies Allergy/AdvReac Type Severity Reaction Status Date / Time lorazepam AdvReac Intermediate WEAKNESS,LETHARGY Verified 06/15/22 07:50 X 5 DAYS codeine AdvReac Mild GI SYMPTOMS Verified 06/15/22 07:50 Home Meds Home Medications Medication Instructions Recorded Confirmed calcium carbonate (Calcium 600) 1,200 mg PO QAM 03/30/18 02/20/24 cholecalciferol (vitamin D3) 25 2,000 unit PO QAM 03/30/18 02/20/24 mcg (1,000 unit) capsule (Vitamin D3) ascorbic acid (vitamin C) 250 mg 500 mg PO QAM 07/26/21 02/20/24 tablet (Vitamin C) amlodipine 5 mg-olmesartan 20 mg 1 tab PO DAILY 05/12/22 02/20/24 tablet citalopram 10 mg tablet 10 mg PO DAILY 05/12/22 02/20/24 Previous Rx's Medication Instructions Recorded aspirin 81 mg tablet,delayed 81 mg PO QAM #0 tabs 05/14/22 release atorvastatin 40 mg tablet 40 mg PO QAM #30 tabs 05/14/22 clopidogrel 75 mg tablet 75 mg PO QAM #30 tabs 05/14/22 Results & Data (ED) Vital Signs Vital Signs - 24 hr 02/20/24 17:39 02/20/24 17:42 02/20/24 18:08 Temperature 36.6 C Temperature Source Skin Pulse Rate 77 72 Pulse Rate from SpO2 Sensor Respiratory Rate 18 Respiratory Effort / Characteristics Non-Labored Spontaneous Respiratory Depth Normal Respiratory Pattern Regular Blood Pressure 147/85 H Blood Pressure Mean 105 Pulse Oximetry 96 95 Oxygen Delivery Method Room Air Room Air Sepsis Recent Fever Within 48 Hours No Sepsis New/Unexplained Change in Mental Status N/A Sepsis Action Taken by Nursing No Action Required 02/20/24 18:12 02/20/24 18:14 02/20/24 18:21 Temperature Temperature Source Pulse Rate 74 72 Pulse Rate from SpO2 Sensor 72 Respiratory Rate 17 19 Respiratory Effort / Characteristics Respiratory Depth Respiratory Pattern Blood Pressure 155/74 H Blood Pressure Mean 101 Pulse Oximetry 98 94 Oxygen Delivery Method Room Air Sepsis Recent Fever Within 48 Hours Sepsis New/Unexplained Change in Mental Status Sepsis Action Taken by Nursing 02/20/24 19:03 02/20/24 19:39 Temperature Temperature Source Pulse Rate 70 73 Pulse Rate from SpO2 Sensor 70 73 Respiratory Rate 16 23 Respiratory Effort / Characteristics Respiratory Depth Respiratory Pattern Blood Pressure 136/93 127/78 Blood Pressure Mean 107 94 Pulse Oximetry 93 96 Oxygen Delivery Method Sepsis Recent Fever Within 48 Hours Sepsis New/Unexplained Change in Mental Status Sepsis Action Taken by Nursing Laboratory Data 02/20/24 Unknown 02/20/24 Unknown Lab Results 02/20/24 Range/Units Unknown WBC 8.01 (4.8-10.8) K/ul RBC 4.85 (4.20-5.40) M/uL Hgb 13.6 (12.0-16.0) g/dl Hct 42.8 (37.0-47.0) % MCV 88.2 (80.0-100.0) fL MCH 28.0 (25.0-34.0) pg MCHC 31.8 L (32.0-36.0) g/dL RDW Std Deviation 43.3 (36.4-46.3) fL RDW Coeff of Jazmin 13.4 (11.5-14.5) % Plt Count 309 (130-400) K/uL MPV 9.6 (9.4-12.4) fL Immature Gran % (Auto) 0.4 % Neut % (Auto) 62.4 % Lymph % (Auto) 17.0 % [place] % (Auto) 6.9 % Eos % (Auto) 12.2 % Baso % (Auto) 1.1 % Neut # (Auto) 5.00 (1.40-6.50) K/uL Lymph # (Auto) 1.36 (1.20-3.40) K/uL [place]vert # (Auto) 0.55 (0.11-0.59) K/uL Eos # (Auto) 0.98 H (0.00-0.50) K/uL Baso # (Auto) 0.09 (0.00-0.20) K/uL Immature Gran # (Auto) 0.03 (0.01-0.20) K/uL PT 10.3 (9.0-12.0) Seconds INR 0.9 (0.9-1.1) APTT 25 (21-31) Seconds PTT Ratio 0.9 Sodium 141 (136-145) mmol/L Potassium 3.9 (3.5-5.1) mmol/L Chloride 105 (98-107) mmol/L Carbon Dioxide 28 (21-32) mmol/L Anion Gap 8 (3-11) BUN 19 (6-23) mg/dl Creatinine 1.01 (0.6-1.2) mg/dl Est Cr Clr Drug Dosing 45.9 ml/min eGFR 55.58 BUN/Creatinine Ratio 18.8 (10-20) Glucose 139 H (70-99(Fasting)) mg/dl Calcium 10.2 (8.6-10.3) mg/dl Total Bilirubin 0.5 (0.2-1.0) mg/dl AST 29 (13-39) U/L ALT 24 (7-52) U/L Alkaline Phosphatase 194 H (34-104) U/L Troponin I High Sens 5.1 (0-14) pg/ml Total Protein 7.2 (6.0-8.3) gm/dl Albumin 4.2 (3.4-5.0) gm/dl Globulin 3.0 (2.5-4.0) gm/dl Albumin/Globulin Ratio 1.4 (0.9-2) Lipase 24 (11-82) U/L SARS-CoV-2, RNA, NAAT NEGATIVE (NEGATIVE) Administered Medications Heparin Sodium/Dextrose (Heparin Sodium/Dextrose) 25,000 units in 500 mls @ 16 mls/hr IV .Q24H [facility]; Protocol Stop: 03/21/24 18:59 Last Admin: 02/20/24 19:56 Dose: 800 units/hr, 16 mls/hr Documented By: JJ Co-signed By: JT Discontinued Medications Heparin Sodium (Porcine) (Heparin Sod (Porcine) 1000 Unit/Ml) 1 units IV NOW ONE Stop: 02/20/24 19:01 Last Admin: 02/20/24 19:56 Dose: 4,000 units Documented By: JJ Co-signed By: JUS Heparin Sodium/Dextrose (Heparin Iv Adult Wt-Based Low-Dose W/ Initial Bolus Protocol) 1 each IV NOW STA; Protocol Stop: 02/20/24 18:46 Last Admin: 02/20/24 19:56 Dose: Not Given Documented By: JJ Imaging Data Radiologist's Impression: Chest X-Ray 02/20/24 17:42 Exam(s): XR CXR 1 VIEW EXAM: XR Chest, 1 View CLINICAL HISTORY: Chest pain, nonspecific. TECHNIQUE: Frontal view of the chest. COMPARISON: Portable chest 02/17/2024 FINDINGS: Lungs: No focal airspace consolidation identified. The pulmonary vascular tree demonstrates no significant radiographic abnormality. Pleural space: Unremarkable. No pneumothorax. No large pleural effusion. Heart: The cardiac silhouette is prominent, although partially accentuated by portable technique. Mediastinum: No significant abnormality identified. The trachea is midline. Bones/joints: Unremarkable. No acute fracture. Tubes, lines and devices: A lap band is suggested in the left upper quadrant, stable. IMPRESSION: The cardiac silhouette is prominent, although partially accentuated by portable technique. No focal airspace consolidation or evidence for florid CHF. Electronically signed by: Oren Whitney MD 02/20/24 19:59 PM Discharge Plan Visit Data Chief Complaint: Cardiac Assessment Stated Complaint: GETTING HEART CATH ED Provider: Paxton Soriano Discharge Problem: BARBER (dyspnea on exertion) Patient Disposition: Being Evaluated by Hospitalist Forms Stand Alone Forms: My [facility] Prescriptions Prescriptions: No Action calcium carbonate [Calcium 600] 600 mg calcium (1,500 mg) Tablet 1,200 mg PO QAM cholecalciferol (vitamin D3) [Vitamin D3] 1,000 unit Capsule 2,000 unit PO QAM ascorbic acid (vitamin C) [Vitamin C] 250 mg Tablet 500 mg PO QAM citalopram 10 mg tablet 10 mg PO DAILY amlodipine-olmesartan 5-20 mg tablet 1 tab PO DAILY clopidogrel 75 mg Tablet 75 mg PO QAM Qty: 30 0RF atorvastatin 40 mg Tablet 40 mg PO QAM Qty: 30 0RF aspirin 81 mg Tablet,Delayed Release (Dr/Ec) 81 mg PO QAM Qty: 0 0RF Referrals Referrals: Michael Quach MD [Primary Care Provider] -
[2024-02-20 18:13] LABS: Basophils # (auto) 0.09 K/uL (0.00-0.20); Basophils % (auto) 1.1 %; Eosinophils # (auto) 0.98 K/uL (0.00-0.50); Eosinophils % (auto) 12.2 %; Hematocrit (blood only) 42.8 % (37.0-47.0); Hemoglobin 13.6 g/dl (12.0-16.0); Immature Granulocytes # (auto) 0.03 K/uL (0.01-0.20); Immature Granulocytes % (auto) 0.4 %; Lymphocytes # (auto) 1.36 K/uL (1.20-3.40); Mean Corpuscular Hgb Conc 31.8 g/dL (32.0-36.0); Mean Corpuscular Volume 88.2 fL (80.0-100.0); Mean Platelet Volume 9.6 fL (9.4-12.4); Monocytes # (auto) 0.55 K/uL (0.11-0.59); Monocytes % (auto) 6.9 %; Neutrophils % (auto) 62.4 %; Platelet Count 309 K/uL (130-400); RDW Coefficient of Variation 13.4 % (11.5-14.5); RDW Standard Deviation 43.3 fL (36.4-46.3); Red Blood Count 4.85 M/uL (4.20-5.40); White Blood Count 8.01 K/ul (4.8-10.8)
[2024-02-20 18:30] LABS: Albumin Globulin Ratio 1.4 (0.9-2); Albumin Level 4.2 gm/dl (3.4-5.0); BUN Creatinine Ratio 18.8 (10-20); Bilirubin,Total 0.5 mg/dl (0.2-1.0); Calcium 10.2 mg/dl (8.6-10.3); Creatinine Clr Calc Pharmacy 45.9 ml/min; Potassium 3.9 mmol/L (3.5-5.1); Total Protein 7.2 gm/dl (6.0-8.3)
[2024-02-20 18:37] LABS: Troponin I High Sensitivity 5.1 pg/ml (0-14)
[2024-02-20 19:22] LABS: INR 0.9 (0.9-1.1); Partial Thromboplastin Ratio 0.9; Partial Thromboplastin Time 25 Seconds (21-31); Prothrombin Time 10.3 Seconds (9.0-12.0)
[2024-02-20] MEDS: HEPARIN SODIUM/DEXTROSE 25,000 UNITS/500 ML BAG IV SCH (19:56)
[2024-02-20] MEDS: Heparin IV Adult Wt-Based Low-Dose w/ INITIAL Bolus Protocol IV STA (19:56)
[2024-02-20] MEDS: HEPARIN SOD (PORCINE) 1000 UNIT/ML IV ONE (19:56)
--- NOTE | 2024-02-20 20:00 | XRay Report ---
Exam(s): XR CXR 1 VIEW EXAM: XR Chest, 1 View CLINICAL HISTORY: Chest pain, nonspecific. TECHNIQUE: Frontal view of the chest. COMPARISON: Portable chest 02/17/2024 FINDINGS: Lungs: No focal airspace consolidation identified. The pulmonary vascular tree demonstrates no significant radiographic abnormality. Pleural space: Unremarkable. No pneumothorax. No large pleural effusion. Heart: The cardiac silhouette is prominent, although partially accentuated by portable technique. Mediastinum: No significant abnormality identified. The trachea is midline. Bones/joints: Unremarkable. No acute fracture. Tubes, lines and devices: A lap band is suggested in the left upper quadrant, stable. IMPRESSION: The cardiac silhouette is prominent, although partially accentuated by portable technique. No focal airspace consolidation or evidence for florid CHF. Electronically signed by: Oren Whitney MD 02/20/24 19:59 PM
--- NOTE | 2024-02-20 20:12 | History & Physical Report ---
Date of Service February 20, 2024 Assessment & Plan (1) BARBER (dyspnea on exertion): (2) Dyslipidemia: (3) Hypertension: (4) ILIA on CPAP: (5) Chronic cerebral ischemia: Plan 83 yo female PMHx anxiety, HTN, HLD, osteoporosis admitted with one week of dyspnea on exertion x 1 week. #Dypnea on Exertion Heparin drip, anti-Xa per protocol Plan for catheterization 02/21/24 echo ordered Trop unremarkable nitro and ekg with chest pain NPO midnight for procedure #Hx of CVA continue ASA 81 daily #HTN Meds converted to amlodipine/losartan Resume usual regimen at dc #HLD continue atorvastatin #ILIA on CPAP CPAP HS FENGI: Heart healthy, NPO midnight Code status: full DVT prophylaxis: lovenox Isolation: none Disposition: PCU History of Present Illness Chief Complaint: sent from Cardiology for EKG changes Primary Care Provider: Michael Quach MD 83 yo female PMHx anxiety, HTN, HLD, osteoporosis admitted with one week of dyspnea on exertion x 1 week. She was seen in the ED on 02/17/24 for the same problem. At the time she had no significant laboratory findings, CXR was negative, CTPE was negative. She was discharged home with an albuterol inhaler which did not relieve her symptoms. She was seen by [facility] cardiology today. Note reviewed states that the patient has "new/deeper Q waves in her inferior leads." Case was discussed with interventional cardiology and it was agreed that the patient would be admitted to [facility] for heparinization and catheterization on 02/21/24. Currently the patient denies CP, SOB, abdominal pain, nausea, vomiting, lightheadedness, dizziness, and diarrhea. ED course: Heparin was started Labs are largely unremarkable Allergies Allergy/AdvReac Type Severity Reaction Status Date / Time lorazepam AdvReac Intermediate WEAKNESS,LETHARGY Verified 06/15/22 07:50 X 5 DAYS codeine AdvReac Mild GI SYMPTOMS Verified 06/15/22 07:50 Home Medications Medication Instructions Recorded Confirmed Type calcium carbonate (Calcium 600) 1,200 mg PO QAM 03/30/18 02/20/24 History cholecalciferol (vitamin D3) 25 2,000 unit PO QAM 03/30/18 02/20/24 History mcg (1,000 unit) capsule (Vitamin D3) ascorbic acid (vitamin C) 250 mg 500 mg PO QAM 07/26/21 02/20/24 History tablet (Vitamin C) amlodipine 5 mg-olmesartan 20 mg 1 tab PO DAILY 05/12/22 02/20/24 History tablet citalopram 10 mg tablet 10 mg PO DAILY 05/12/22 02/20/24 History aspirin 81 mg tablet,delayed 81 mg PO QAM #0 tabs 05/14/22 02/20/24 Rx release atorvastatin 40 mg tablet 40 mg PO QAM #30 tabs 05/14/22 02/20/24 Rx Past Med/Surg History Problem List BARBER (dyspnea on exertion) (Acute) BARBER (dyspnea on exertion) (Acute) SOB (shortness of breath) (Acute) Chronic cerebral ischemia Dyslipidemia Hypertension ILIA on CPAP AAA (abdominal aortic aneurysm) PCP monitoring -- last evaluated approx 1 year ago [place] Right leg weakness (Acute) History of colon polyps Biliary colic (Acute) Chest trauma (Acute) Cholelithiasis (Acute) Contusion of head (Acute) Fall (Acute) Encounter for pre-operative examination Medical History Acute CVA (cerebrovascular accident) History of colon polyps History of squamous cell carcinoma History of basal cell carcinoma Hand fracture hx multiple hand bones Foot fracture hx multiple fractures History of trigger finger Sleep apnea CPAP Hyperlipidemia Surgical History History of basal cell carcinoma (BCC) excision History of squamous cell carcinoma excision History of arthroscopy Rt hip S/P carpal tunnel release History of cataract surgery History of laparoscopic adjustable gastric banding History of tonsillectomy History of dilatation and curettage History of cholecystectomy History of appendectomy History of colonoscopy Family History Father Cardiac disorder Other Arthritis No family history of adverse response to anesthesia Social History Smoking Status: Never smoker Tobacco Type: Cigarettes Age Started Using Tobacco: 17; Age Quit Using Tobacco: 63; packs per day: 1; Second Hand Exposure: No; Do You Dip or Chew Tobacco: No; Hx Alcohol Use: Yes Alcohol type: hard liquor Hx Substance Use: No Preferred Language: Kiswahili Communication Ability: Effective Edi Programmer Analyst Required: No Beliefs That Will Affect Care: None Current Living Situation: Alone Current Living Situation Comment: alone in home with dog current occupational status: retired 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[employer] Other Information That Helps Us Care for You: No Feels Safe at Home: Yes Safety Concerns: Feels Safe At This Time Assistive Devices: CPAP Review of Systems Review of Systems: reviewed, per HPI Physical Exam Physical Exam: Constitutional: well-appearing, no acute distress HEENT: NCAT, no conjunctival injection CV: regular rhythm, no murmur appreciated, extremities well-perfused, no LE edema Resp: CTABL, no wheezes/rales/rhonchi appreciated, no increased work of breathing GI: soft, nondistended, nontender, BS normoactive MSK: no gross deformities appreciated Skin: warm, dry, no rash appreciated Neuro: alert, oriented, no focal neurologic deficit appreciated Results & Data Results & Data Vital Signs (Past 12 Hours) Vital Signs Temp Pulse Resp BP Pulse Ox O2 Del Method 02/20/24 19:39 73 23 127/78 96 02/20/24 19:03 70 16 136/93 93 02/20/24 18:21 72 19 94 02/20/24 18:14 Room Air 02/20/24 18:12 74 17 155/74 H 98 02/20/24 18:08 72 02/20/24 17:42 95 Room Air 02/20/24 17:39 36.6 C 77 18 147/85 H 96 Room Air Laboratory Results Laboratory Results WBC 8.01 K/ul (4.8-10.8) 02/20/24 Unknown RBC 4.85 M/uL (4.20-5.40) 02/20/24 Unknown Hgb 13.6 g/dl (12.0-16.0) 02/20/24 Unknown Hct 42.8 % (37.0-47.0) 02/20/24 Unknown MCV 88.2 fL (80.0-100.0) 02/20/24 Unknown MCH 28.0 pg (25.0-34.0) 02/20/24 Unknown MCHC 31.8 g/dL (32.0-36.0) L 02/20/24 Unknown RDW Std Deviation 43.3 fL (36.4-46.3) 02/20/24 Unknown RDW Coeff of Jazmin 13.4 % (11.5-14.5) 02/20/24 Unknown Plt Count 309 K/uL (130-400) 02/20/24 Unknown MPV 9.6 fL (9.4-12.4) 02/20/24 Unknown Immature Gran % (Auto) 0.4 % 02/20/24 Unknown Neut % (Auto) 62.4 % 02/20/24 Unknown Lymph % (Auto) 17.0 % 02/20/24 Unknown [place] % (Auto) 6.9 % 02/20/24 Unknown Eos % (Auto) 12.2 % 02/20/24 Unknown Baso % (Auto) 1.1 % 02/20/24 Unknown Neut # (Auto) 5.00 K/uL (1.40-6.50) 02/20/24 Unknown Lymph # (Auto) 1.36 K/uL (1.20-3.40) 02/20/24 Unknown [place] # (Auto) 0.55 K/uL (0.11-0.59) 02/20/24 Unknown Eos # (Auto) 0.98 K/uL (0.00-0.50) H 02/20/24 Unknown Baso # (Auto) 0.09 K/uL (0.00-0.20) 02/20/24 Unknown Immature Gran # (Auto) 0.03 K/uL (0.01-0.20) 02/20/24 Unknown PT 10.3 Seconds (9.0-12.0) 02/20/24 Unknown INR 0.9 (0.9-1.1) 02/20/24 Unknown APTT 25 Seconds (21-31) 02/20/24 Unknown PTT Ratio 0.9 02/20/24 Unknown Sodium 141 mmol/L (136-145) 02/20/24 Unknown Potassium 3.9 mmol/L (3.5-5.1) 02/20/24 Unknown Chloride 105 mmol/L (98-107) 02/20/24 Unknown Carbon Dioxide 28 mmol/L (21-32) 02/20/24 Unknown Anion Gap 8 (3-11) 02/20/24 Unknown BUN 19 mg/dl (6-23) 02/20/24 Unknown Creatinine 1.01 mg/dl (0.6-1.2) 02/20/24 Unknown Est Cr Clr Drug Dosing 45.9 ml/min 02/20/24 Unknown eGFR 55.58 02/20/24 Unknown BUN/Creatinine Ratio 18.8 (10-20) 02/20/24 Unknown Glucose 139 mg/dl (70-99(Fasting)) H 02/20/24 Unknown Calcium 10.2 mg/dl (8.6-10.3) 02/20/24 Unknown Total Bilirubin 0.5 mg/dl (0.2-1.0) 02/20/24 Unknown AST 29 U/L (13-39) 02/20/24 Unknown ALT 24 U/L (7-52) 02/20/24 Unknown Alkaline Phosphatase 194 U/L (34-104) H 02/20/24 Unknown Troponin I High Sens 5.1 pg/ml (0-14) 02/20/24 Unknown Total Protein 7.2 gm/dl (6.0-8.3) 02/20/24 Unknown Albumin 4.2 gm/dl (3.4-5.0) 02/20/24 Unknown Globulin 3.0 gm/dl (2.5-4.0) 02/20/24 Unknown Albumin/Globulin Ratio 1.4 (0.9-2) 02/20/24 Unknown Lipase 24 U/L (11-82) 02/20/24 Unknown SARS-CoV-2, RNA, NAAT NEGATIVE (NEGATIVE) 02/20/24 Unknown Impressions Chest X-Ray 02/20/24 17:42 Exam(s): XR CXR 1 VIEW EXAM: XR Chest, 1 View CLINICAL HISTORY: Chest pain, nonspecific. TECHNIQUE: Frontal view of the chest. COMPARISON: Portable chest 02/17/2024 FINDINGS: Lungs: No focal airspace consolidation identified. The pulmonary vascular tree demonstrates no significant radiographic abnormality. Pleural space: Unremarkable. No pneumothorax. No large pleural effusion. Heart: The cardiac silhouette is prominent, although partially accentuated by portable technique. Mediastinum: No significant abnormality identified. The trachea is midline. Bones/joints: Unremarkable. No acute fracture. Tubes, lines and devices: A lap band is suggested in the left upper quadrant, stable. IMPRESSION: The cardiac silhouette is prominent, although partially accentuated by portable technique. No focal airspace consolidation or evidence for florid CHF. Electronically signed by: Oren Whitney MD 02/20/24 19:59 PM ECG Additional Comments: EKG per my interpretation with NSR at 70bpm, ZK=181, JZU=047, KQz=096, RBBB present, no acute ischemic changes. Inferior Q-waves, possible age-indet erminant inferior infarction Supervising Physician Co-Signing Physician Notes Patient seen and examined, chart reviewed, case discussed with Dr. Leonard and I agree with the assessment and plan as above. In brief, patient is an 83yo female presenting with BARBER x 1 week, some intermittent chest discomfort. Patient was seen in the ER for similar complaint on 02/16/23 and had an unremarkable workup including NEGATIVE CT-PA study. She was seen by Cardiology vitaliy - had an EKG performed in office which revealed some changes to her Q- waves inferior. She has been sent to the ER, planned cardiac catheterization in AM On exam she is resting comfortably, NAD, no chest pain or dyspnea at rest Skin - no rash HEENT - MMM, neck supple Heart - +S1/S2, regular, no m/r/g Lungs - CTA, no rales/rhonchi/wheezes Abd - soft, NT/ND Ext - warm, well perfused labs and images reviewed Assessment/plan Patient with worsening BARBER, some EKG changes noted by Cardiology - concerning for possible ischemia, anginal equivalent. Here with no acute EKG changes. Troponin is unremarkable. No chest pain or dyspnea at present. Patient does not endorse symptoms of failure - no edema/orthopnea/weight gain Cardiology note from today accessed by Dr. Leonard and reviewed Admission to PCU Heparin gtt Plan for cardiac catheterization in AM Remainder as above Resident Activity Tracking Resident Involvement: Resident Care Provided Care Provided: Adult Hospital Medicine (3) Hypertension Hypertension type: primary hypertension Qualified Code(s): I10 - Essential (primary) hypertension
[2024-02-20] MEDS ORDERED: ONDANSETRON INJ 2 MG/ML 2 ML VIAL IV PRN (21:55)
[2024-02-20] MEDS ORDERED: ACETAMINOPHEN 325 MG TAB PO PRN (21:55)
[2024-02-20] MEDS ORDERED: MAGNESIUM HYDROXIDE SUSP 30 ML UDC PO PRN (21:55)
[2024-02-20] MEDS ORDERED: NITROGLYCERIN SL 0.4 MG/TAB TAB SL PRN (21:55)
[2024-02-20] MEDS ORDERED: POLYETHYLENE (MIRALAX) 17 GM PACK PO PRN (21:55)
--- NOTE | 2024-02-20 23:38 | Billing Data ---
Date of Service February 20, 2024 Coding Level of Care Code 58908 INT INP/OBS CARE
[2024-02-21 02:20] LABS: Basophils # (auto) 0.08 K/uL (0.00-0.20); Basophils % (auto) 1.1 %; Eosinophils # (auto) 1.23 K/uL (0.00-0.50); Eosinophils % (auto) 17.2 %; Hematocrit (blood only) 36.9 % (37.0-47.0); Hemoglobin 11.8 g/dl (12.0-16.0); Immature Granulocytes # (auto) 0.02 K/uL (0.01-0.20); Immature Granulocytes % (auto) 0.3 %; Lymphocytes # (auto) 1.77 K/uL (1.20-3.40); Lymphocytes % (auto) 24.7 %; Mean Corpuscular Hemoglobin 28.4 pg (25.0-34.0); Mean Corpuscular Volume 88.9 fL (80.0-100.0); Monocytes # (auto) 0.73 K/uL (0.11-0.59); Monocytes % (auto) 10.2 %; Neutrophils # (auto) 3.33 K/uL (1.40-6.50); Neutrophils % (auto) 46.5 %; Platelet Count 279 K/uL (130-400); RDW Coefficient of Variation 13.4 % (11.5-14.5); RDW Standard Deviation 43.6 fL (36.4-46.3); Red Blood Count 4.15 M/uL (4.20-5.40); White Blood Count 7.16 K/ul (4.8-10.8)
[2024-02-21 02:36] LABS: Albumin Globulin Ratio 1.3 (0.9-2); Albumin Level 3.5 gm/dl (3.4-5.0); BUN Creatinine Ratio 25.3 (10-20); Bilirubin,Total 0.4 mg/dl (0.2-1.0); Globulin 2.6 gm/dl (2.5-4.0); Magnesium 1.9 mg/dl (1.7-2.4); Total Protein 6.1 gm/dl (6.0-8.3)
[2024-02-21 02:41] LABS: ANTI-Xa, UFH(UnfractionatedHep 0.63 IU/ml (0.3-0.7)
--- OUTSIDE RECORDS SUMMARY | 2024-02-21 06:24 | External Medical Summary | Continuity of Care Document ---
Author Name Unknown Organization [address] Address [address] [place], [place] [id number] Care Team Providers Care Residential Substance Abuse Counselor Name Role Phone Michael Quach Primary Care Physician [phone] [id number] Date(s): 02/17/24 - 02/17/[address] [address] [phone] Encounter Diagnosis SOB (shortness of breath)(Discharge Diagnosis) - 02/17/24 Discharge Disposition: Home or Self Care Attending Physician: JADYN Akhtar Tara Allergies, Adverse Reactions, Alerts Substance Criticality Severity Reaction Reaction Severity Status codeine 1 vomiting Active LORazepam takes days to wear off Active 1Had taken codein several years ago w/o any problems. It used to upset her stomach. Assessment and Plan Extracted from: Title:SOB Author:JADYN Akhtar Tara Date:02/17/24 1.SOB (shortness of breath ) Acute/Chronic: acute Goal:Resolution/ control Status:ongoing Data: records/pt report Plan: Worsening SOB over the last few days. EKG in office showed NSR with RBBB. No changes seen since previous ekg [id number]. Reviewed by Dr. Her who concurred. Concerned for possible VTE, intermittent arrhythmia, other heart issues. Recommend ER visit. Pt agrees. Her daughter drove her here. She declined EMS transport. Will call and notify ER. time spent reviewing chart, face to face visit, ordersand documentation: 33 min Immunizations Given and Recorded Vaccine Date Status Refusal Reason influenza virus vaccine, inactivated 11/17/23 Harley rded influenza virus vaccine, inactivated 11/20/22 Harley rded influenza virus vaccine, inactivated 11/06/21 Give n influenza virus vaccine, inactivated 11/02/20 Give n influenza virus vaccine, inactivated 10/15/19 Harley rded influenza virus vaccine, inactivated 11/24/18 Give n influenza virus vaccine, inactivated 01/03/18 Harley rded influenza virus vaccine, inactivated 12/12/16 Give n influenza virus vaccine, inactivated 11/23/15 Give n influenza virus vaccine, inactivated 11/23/14 Give n influenza virus vaccine, inactivated 10/12/13 Harley rded RSV vaccine preF3, recombinant 12/27/22 Recorded SARS-CoV-2 (COVID-19) mRNA-1273 vaccine 06/24/21 R ecorded SARS-CoV-2 (COVID-19) mRNA-1273 vaccine 06/24/21 R ecorded SARS-CoV-2 (COVID-19) mRNA-1273 vaccine 12/10/20 R ecorded SARS-CoV-2 (COVID-19) mRNA-1273 vaccine 1 04/06/20 Recorded SARS-CoV-2 (COVID-19) mRNA-1273 vaccine 03/09/20 R ecorded zoster vaccine, inactivated 2 08/14/19 Given zoster vaccine, inactivated 04/13/19 Given tetanus/diphtheria/pertuss, acel (Tdap) 08/10/15 R ecorded diphtheria/pertussis, whole cell/tetanus 3 08/10/15 Recorded pneumococcal 13-valent vaccine 4 11/23/14 Given zoster vaccine live 07/25/09 Recorded pneumococcal 23-valent vaccine 12/11/07 Recorded tetanus toxoids-diphtheria, Td (Adult) 12/11/07 Re corded 1Result Comment: 2021-11-06: Historical information-source unspecified 2Result Comment: Suspension [id number] 04/16/21 3Result Comment: 2021-11-06: Historical information-source unspecified 4Early/Late Reason: Other : busy, unable to chart until now. Medications amLODIPine 5 mg oral tablet Start: 07/30/23 1:08:00 PM EDT, 0.5 tab, PO, Daily, Disp# 90 tab, Refills: 3, Pharmacy: [facility] [address] Start Date: 07/30/23 Status: Ordered aspirin 81 mg oral delayed release tablet Start: 05/22/22 9:01:00 AM EDT, 1 tab, PO, Daily Start Date: 05/22/22 Status: Ordered atorvastatin 40 mg oral tablet Start: 08/09/23 4:03:00 PM EDT, 1 tab, PO, Daily, Disp# 90 tab, Refills: 3, Pharmacy: [facility] [address] Start Date: 08/09/23 Status: Ordered calcium (as carbonate) 600 mg oral tablet Start: 07/18/23 1:25:00 PM EDT, 1 tab, PO, Daily Start Date: 07/18/23 Status: Ordered citalopram 10 mg oral tablet Start: 08/09/23 4:03:00 PM EDT, 1 tab, PO, Daily, Disp# 90 tab, Refills: 3, Pharmacy: [place] [id number] Start Date: 08/09/23 Stop Date: 08/03/24 Status: Ordered Cranberry Start: 12/27/22 9:00:00 AM EST Start Date: 12/27/22 Status: Ordered Fosamax 70 mg oral tablet Start: 12/16/23 11:52:00 AM EST, 1 tab, PO, q7days, Disp# 14 tab, Refills: 4, with 6-8 oz plain water, at least 30 minutes before first food, beverage, or medication of the day, Pharmacy: [place] [id number] Start Date: 12/16/23 Status: Ordered olmesartan 20 mg oral tablet Start: 11/27/23 11:15:00 AM EDT, 1 tab, PO, Daily, Disp# 90 tab, Refills: 3, Pharmacy: [place] [id number] Start Date: 11/27/23 Status: Ordered triamcinolone 0.1% topical ointment Start: 12/26/23 11:09:00 AM EST, 1 appl, topical, bid, Disp# 80 g, to right ear, Pharmacy: [place] [id number] Start Date: 12/26/23 Status: Ordered Vitamin C Start: 09/14/19 8:26:00 AM EDT, See Instructions, 1-2 tablets daily, not sure of the mg Start Date: 09/14/19 Status: Ordered Mental Status 02/17/24 Barriers to Learning one year None evide nt Mandatory Health Literacy Documentation Yes Health Literacy Communication Barriers N ever Primary Language Georgian Problem List Condition Confirmation Course Effective Dates Status H ealth Status Informant Abdominal lump 1, 2 Confirmed Active Actinic keratosis Confirmed Active Elevated alkaline phosphatase level Confirmed Active Anxiety Confirmed Active Aortic valve sclerosis Confirmed Active BENIGN NEOPLASM OF COLON 3 Confirmed 12/07/09 Active Ankle cellulitis Confirmed Active Claustrophobia Confirmed Active Aortic dilatation Confirmed Active Fatty liver 4 Confirmed Active Headache Confirmed Active Hx of colonic polyp Confirmed Active History of skin cancer 5 Confirmed Active History of squamous cell carcinoma of skin Confirmed Active HTN (hypertension) Confirmed Active Inflamed seborrheic keratosis Confirmed Active 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 Confirmed Active MIXED HYPERLIPIDEMIA Confirmed 12/07/09 Active Morbid obesity Confirmed Active OSTEOPOROSIS 6, 7, 8, 9, 10 Confirmed 12/07/09 Active Right lumbar radiculitis Confirmed Active Rectal bleeding Confirmed Active Sacroiliitis Confirmed Active Seborrheic keratoses Confirmed Active Senile hyperkeratosis Confirmed Active Skin lesion Confirmed Active Sleep apnea 11 Confirmed 12/07/09 Active Status post gastric banding Confirmed Active Thyroid nodule 12, 13, 14, 15 Confirmed Active Right torticollis Confirmed Active Trigger thumb of left hand Confirmed Active Weight disorder Confirmed Active 1The palpable lump in RUQ is likely the gastric band device as noted in CT scan 2Abd/pelvis CT in 12/2020 for evaluation of a palpablle RUQ lump: IMPRESSION: No evidence of masslike lesion in the right upper quadrant. A report for the gastric band device isnoted in the right upper quadrant. There is a midline sebaceous cyst. Additional findings as above. 3colon polyps 2010 4US in 12/2015: fatty liver 5bcc left upper chest 6T scorein 2021: -2.6 7correction: T score in 06/2019 was -2.4 8T score in 06/2019 was -2.6 10:02 - RINKU Ayers Kimbra J T-score : - 2.5. Off Evista in 04/2017 10dexa in 01/2015: T score -2.6 11CPAP 10cm H2O pressure 12stable for 2 years. no need for futher testing 16:15 - RINKU Jose Brenda Heterogeneous and multinodular thyroid gland as above, not significantly changed from 12/27/2016. 14Thyrooid US in 12/2015: 1.2 cm complex nodule in right thyroid, low suspicion. will repeat US in [address] in 07/2015: 1.8cm right thyroid nodule Diagnosis Diagnosis Type Effective Dates Health Status Cl inical Service Informant SOB (shortness of breath) Discharge Diagnosis 02/17/24 Non-Specified Procedures Procedure Date Related Diagnosis Body Site Status Shave biopsy and cauterization of skin 02/12/23 Completed Electrodesiccation with curettage 09/21/[address] of head 1 05/12/[address] of lumbar spine 2 05/12/22 Comp leted MR angiography of head and neck 3 05/12/22 Completed MRI of brain 4 05/12/22 Completed MRI of lumbar spine without contrast 5 05/12/22 Completed Bone density scan 6, 7 09/26/21 Co mpleted Mammogram - screening 8 09/25/21 C ompleted Colonoscopy 9 07/28/[address] of abdomen and pelvis 10 12/01/20 Completed Ultrasound scan of abdominal wall 11 11/07/20 Completed Mohs micrographic surgery 03/30/20 Completed Shave biopsy and cauterization of skin 03/17/20 Completed Mammogram 12 06/25/19 Completed Colonoscopy 13, 14 04/23/18 Comple jocelyn Pathology report colon 15 04/23/[address] of abdomen and pelvis 16 03/30/18 Completed US EXAM PELVIC COMPLETE 17 03/30/18 Completed Ultrasound scan of thyroid 18 01/08/18 Completed Colonoscopy 19, 20, 21 06/24/17 Co mpleted Pathology 22 06/24/17 Completed Bone density scan 23 06/17/17 Comp leted Mammogram - screening 24 06/17/17 Completed Ultrasound of head/neck/thyroid 25 12/27/16 Completed Colonoscopy 26, 27 06/21/16 Comple jocelyn Excision of squamous cell carcinoma 06/07/16 Completed Electrodesiccation with curettage 03/27/16 Completed Shave biopsy 03/20/16 Completed Colonoscopy 28, 29 01/10/16 Comple jocelyn US - Ultrasound abdomen complete 30 12/29/[address] of cervical spine 31 08/10/15 C ompleted CXR - Chest X-ray 32 08/10/[address] w/o contrast 33 08/10/15 C ompleted DEXA - Dual energy X-ray sita ton absorptiometry 34 01/11/15 Completed Mammogram - screening 35 01/11/15 Completed MRI 36 07/07/14 Completed Cholecystectomy 37 01/14/14 Comple jocelyn Culture, fungi (mold or yeas t) isolation, with presumptive identification of isolates; other source (except blood) 38 01/14/14 Complet ed Laparoscopic cholecystectomy 39 01/14/14 Completed Ultrasound 40 01/09/14 Completed Arthroscopic procedure 41 08/31/13 Completed Shave biopsy of skin 05/22/11 Comp leted Basal cell removed - left upper chest 2011 Completed LAP-Gastric BAND surgery status 08/22/07 Completed Appendectomy 1963 Completed Tonsillectomy 195 Completed colonoscopy - 08/23 Comple jocelyn mammogram - 10/2012 Comple jocelyn R wrist carpal tunnel surgery - 05/2012 Completed 1No acute intracranial hemorrhage, no evidence of acute territorial infarction or other acute intracranial disease process. 2No evidence of acute bony injury. Of note, MRI is a more sensitive modality for neuroforaminal or canal stenosis. 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 no hemoorhage is seen. age-related changes arenoted 5no acute findings in the lumbar spine. multilevel degenerative disc disease and facet arthropathy 6T-score: -2.6. 10 year probability of fracture: Major Osteoporotic 33.4% Hip 7Hip 19.0% Population [place] Based on dualfemur (left) neck BMD 8CLINICAL HISTORY: Routine screening. Patient has no complaints. TECHNIQUE: Bilateral CC and MLO tomosynthesis images including synthesized 2D images (Intelligent 2D) were obtained. Current study was also evaluated with a Computer Aided Detection (CAD) system. COMPARISON: Comparison is made to exams dated: 06/25/2019 mammogram, 06/17/2017 mammogram, 01/11/2015 mammogram, 11/06/2012 mammogram, 11/06/2011 mammogram, and 10/26/2010 mammogram - [facility]. BREAST COMPOSITION: There are scattered areas of fibroglandular density. FINDINGS: The parenchymal pattern is unchanged. No developing mass, architectural distortion or cluster of suspicious microcalcifications is seen in either breast. IMPRESSION: ACR BI-RADS CATEGORY 2: BENIGN There is no mammographic evidence of malignancy. A 1 year screening mammogram is recommended.(09/26/2022) The patient will receive written notification of the results. Some breast cancers are not detected with mammography. A negative mammographic report should not delay biopsy if a clinically suggestive mass is present. 9Impression: three 3-5 mm polyps in the rectum, removed with a cold snare. Resected and retrieved. Diverticulosis in the sigmoid colon Non-bleeding internal hemorrhoids. 10CLINICAL HISTORY: RUQ FIRM LUMP,U/S INCONCLUSIVE TECHNIQUE: Helical axial images of the abdomen and pelvis were obtained. Automated dose lowering techniques and/or adjustment according to patient size were utilized for this exam. This exam was performed without intravenous contrast. COMPARISON: Comparison is made to CT abdomen pelvis 03/30/2018 FINDINGS: Lower chest: Cardiomegaly is partially visualized. Bibasilar atelectasis is seen. Liver: Unremarkable. No focal lesions are seen. Gallbladder and biliary tree: Patient is status post cholecystectomy. No intra- or extrahepatic biliary ductal dilation. Pancreas: Unremarkable, no focal lesions. Spleen: Unremarkable. Adrenals: Unremarkable. Kidneys and ureters: Right nonobstructive nephrolithiasis is seen. Bladder: Unremarkable. Reproductive organs: Unremarkable. Bowel: Diverticulosis is seen without evidence of diverticulitis. A gastric band device is seen about the stomach with a port in the right upper quadrant. The appendix is absent, likely postsurgical. Lymph nodes Retroperitoneal: Unremarkable. Mesenteric: Unremarkable. Pelvic: Unremarkable. 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 Abdominal wall: There is a soft tissue density in the central mid chest measuring 20 mm in diameter, likely representing a sebaceous cyst. Bones: Degenerative changes in the visualized spine. IMPRESSION: No evidence of masslike lesion in the right upper quadrant. A report for the gastric band device isnoted in the right upper quadrant. There is a midline sebaceous cyst. Additional findings as above. 11Impression: No sonographic abnormality is identified in the right upper quadrant abdominal wall at the indicated site of interest. 12No mammographic evidence of malignancy 13Non-bleeding internal hemorrhoids A tattoo was seen in the mid ascending colon One 3mm polyp in the sigmoid colon, removed with a cold biopsy forceps. Resected and retrieved. 14Medium-sized lipoma in the proximal ascending colon. 15COLON, SIGMOID (POLYPECTOMY): 1. An inflamed, fragmented serrated polyp consistent with a hyperplastic polyp is seen. 2. Please note this case was reviewed by one of my colleagues in the department of pathology and [facility] with the rendered diagnosis. 161. No evidence of bowel obstruction. No evidence of free air. 2. Gastric banding device. 3. Diverticulosis. No evidence of acute diverticulitis. 4. BOrderline bladder wall thickening. 171. No uterine masses identified. 2. 2 mm endometrial stripe with a small amount of fluid present within the endometrial canal 3. Nonvisualization of the ovaries. no pathologic adnexal masses identified. 18Heterogeneous and multinodular thyroid gland as above, not significantly changed from 12/27/2016. 19Repeat in 3 years. 20One 5 mm polyp in the ascending colon, removed with a cold biopsy forceps. Resected and retrieved. treated with monopolar probe. One 10 mm polyp in the ascending colon, removed wtih a hot snare. resected and retrieved. Treated with a nomopolar probe. Treated with a hot snare. Clip was placed. The examination was otherwise normal. The examined portion of the ileum was normal. The distal rectum and anal verge are normal on retroflexion view. 21Pathology results: A) Colon, ascending, polypectomy: 1) Multiple benign fragments of colonic mucosawith no pathologic Dx are seen. 2) The clinical Hx of "ascending polypectomy forcep prior polyp site" is noted. 3) The clinical Hx of sessile serrated adenoma Dx on polypectomy of the ascending colon, part A of barbara case [id number] is noted as well. B) Colon, ascendign, polypectomy: a fragmented, inflamed and cauterized infalmmatory polyp is seen. 22Colon, ascendin. Multiiple benign fragments of colonic mucosa with no pathologic diagnosis are seen. 2. The clinical history of "ascending polupectomy forcep prior polyp site" is noted. 3. The clinical history of sessile serrated adenoma diagnosed on polypecotomy of the ascending colon, part A of previous case [id number] is noted as well. 23T-score : 2.5 24There is no mammographic evidence of malignancy. A 1 year screening mammogram is recommended. The patient will receive written notification of the results. 25Impression: Multinodular thyroid. Increased number of nodules since the prior exam. no nodules meetAmerican thyroid association criteria for fine-needle aspiration at this time. Continued follow-up ultrasound could be considered as clinically indicated. 26Pathology results: A) Colon, ascending, polypectomy: sessile serrated adenoma B) Colon, 20cm, polypectomy: hyperplastic polyp 27One 20mm polyp in the ascending colon, removed with a hot snare, removed using injection-lift and ahot snare and removed piecemeal using a hot snare. Resected and retrieved. Injected. Clips (MR conditional) were placed. One 7mm polup at 20cm proximal to the anus, removed with a hot snare. Resectedand retrieved. The examination was otherwise normal. The distal recutm and anal verge are normal on retroflexion view. 28One 6 mm polyp in the cecum, removed with a hot snare. Resected and retrieved. One 15 mm polyp in the ascending colon, removed with a hot snare. Incomplete resection. Resected tissue retrieved. Treatment not successful. Tattooed. Diverticuosis in the sigmoid colon. The examination was otherwise normal. The examined portion of the ileum was normal. The distal rectum and anal verge are normal on retroflexion view. 291 tubular adenoma. 1 serrated polyp. repeat Colonoscopy in 6 months. 30Impression: No acute sonograpic abnormality is identified noting status post cholecystectomy. Hepatomegly and hepatic steatosis. An indeterminant structure in the upper abdomen likely represents the reservoir for the gastric lapband. 311. No fractures within the cervical spine. 2. A few subcentimeter lucent lesions seen within the cervical spine vertebral bodies. These are nonspecific and may represent small hemangiomas, Multiple myeloma could also have a similar appearance. Coorelation with follow-up laboratory values is recommended for further evaluation. 3. A 1.8 cm right thyroid nodule. 4. Degenerative changes as described above. 32No rib fractures. No pneumothorax 33No acute intracranial abnormality. 34-2.6 35there is no mammographic evidence of malignancy. A 1 year screening mammogram is recommended. the patient will receive written notification of the results. 36mri of the lumbar spine no contrast. hx back pain and rt leg radiculopathy. impression no significant abnormallites. 37Final diagnosis: Gallbladder mucosa with chronic cholecystitis. Cholelithiasis. 38no yeast or hyphae seen gallbladder drain 39and Intraoperative cholangiogram: No convincing common bile duct calculi identified. There are few transient filing defects w/in the common bile duct that do not persist. Theses may reflect gas bubbles Mild smooth narrowing of the distal common bile duct w/out significant upstream dilatation. 40abdomen--1) fatty liver 2) suboptimal evaluation of the gallbladder and common bile duct d/t the poor visualization from the patient's body habitus. the common bile duct likely measures 3mm. There are a few gallstones. 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 FCM Outpt Note * JADYN Akhtar Tara: PERFORM Event Display: FCM Outpt Note Authored Date: [id number] Chief Complaint c/o SOB x for past few days, states has gotten worse yesterday & today. She describes as "has to take a deep breath to be able to breathe." History of Present Illness Having worsening SOB over the last few days. She has hx ofaortic dilation and aortic valve sclerosis. She was recent taken off her amlodipine as he BP was running low. Contd on olmesartan. However her BP was going up to 160/80 so she went back on [id number]. She generally has some dyspnea going up steps but she even is having SOB at rest. Such walking to the bathroom she was SOB and also while putting her socks and shoes on today. She denies CP. She does have some swelling in lower ext.No palpitations or racing heart. No recent long car rides or plane rides. No hx ofVTE but mother had hx ofVTE. No fevers. Review of Systems Constitutional: No fever, chills, sweats EENT:No vision change, eye pain, rhinorrhea, sinus pain, epistaxis, dysphagia, change in hearing,tinnitus, vertigo, oral ulcers or lesions. Pulmonary: No cough, hemoptysis, wheezing, chest pain. +shortness of breath, dyspnea with exertion, Cardiovascular: No chest pain, palpitations, syncope, edema, cyanosis, claudication, orthopnea. Neurologic: No headache, lightheadedness, dizziness Physical Exam Vitals & Measurements HR:63(Monitored) RR:18 BP:136/80 SpO2:97% WT:87.9kg WT:87.900kg(Dosing) PHQ2 Data(Data Documented on:02/17/2024 15:02) Emotional health assessment NEGATIVE head- normocephalic neck-no lymphadenopathy, masses, or thyromegaly, +carotid pulses, no bruits, trachea midline Pulmonary- chest expansion symmetric, CTA (clear to auscultation), eupnea, no adventitious sounds (rales, crackles, wheezes) CV (cardiovascular)- RRR no m/r/g (systolic ejection murmur, rubs, gallops) extremitiesTracepedaledema skin-good turgor w/o lesions, redness, cyanosis, edema nails- no clubbing or deformities w good cap refill Neuro:Alert, Oriented, Psy:no homicidal or suicidal ideations. Assessment/Plan 1.SOB (shortness of breath) Acute/Chronic: acute Goal:Resolution/ control Status:ongoing Data: records/pt report Plan:Worsening SOB over the last few days. EKG in office showed NSR with RBBB. No changes seen since previous ekg [id number]. Reviewed by Dr. Her who concurred. Concerned for possible VTE, intermittent arrhythmia, other heart issues. Recommend ER visit. Pt agrees. Her daughter drove her here. She declined EMS transport. Will call and notify ER. time spent reviewing chart, face to face visit, ordersand documentation: 33 min Problem List/Past Medical History Ongoing Abdominal lump Actinic keratosis Ankle cellulitis Anxiety Aortic dilatation Aortic valve sclerosis BENIGN NEOPLASM OF COLON Claustrophobia Elevated alkaline phosphatase level Fatty liver Headache History of skin cancer History of squamous cell carcinoma of skin HTN (hypertension) Hx of colonic polyp Inflamed seborrheic keratosis MIXED HYPERLIPIDEMIA Morbid obesity OSTEOPOROSIS Rectal bleeding Right lumbar radiculitis Right torticollis Sacroiliitis Seborrheic keratoses Senile hyperkeratosis Skin lesion Sleep apnea 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 Status post gastric banding Thyroid nodule Trigger thumb of left hand Weight disorder Resolved Carpal tunnel syndrome Colonoscopy DEPRESSION Epicondylitis elbow, medial Greater trochanteric bursitis of right hip Neck pain on right side Neoplasm of uncertain behavior of skin Trapezius muscle spasm Weakness of right hip Procedure/Surgical History Shave biopsy and cauterization of skin| Service Date: 02/12/2023Electrodesiccation with curettage| Service Date: 3CT of lumbar spine| Service Date: 3CT of head| Service Date: 05/12/2022MR angiography of head and neck| Service Date: 05/12/2022MRI of lumbar spine without contrast| Service Date: 05/12/2022MRI of brain| Service Date: 05/12/2022one density scan| Service Date: 09/26/2021Mammogram - screening| Service Date: 09/25/2021olonoscopy| Service Date: 07/28/2021T of abdomen and pelvis| Service Date: 12/01/2020Ultrasound scan of abdominal wall| Service Date: 2020Mohs micrographic surgery| Service Date: 03/30/2020have biopsy and cauterization of skin| Service Date: 03/17/2020Mammogram| Service Date: 06/25/2019Pathology report colon| Service Date: 04/23/2018Colonoscopy| Service Date: 04/23/2018US EXAM PELVICCOMPLETE| Service Date: 03/30/2018CT of abdomen and pelvis| Service Date: 03/30/2018Ultrasound scan of thyroid| Service Date: 01/08/2018Pathology| Service Date: 06/24/2017Colonoscopy| Service Date: 06/24/2017Bone density scan| Service Date: 06/17/2017Mammogram - screening| ServiceDate: 06/17/2017Ultrasound of head/neck/thyroid| Service Date: 12/27/2016Colonoscopy| ServiceDate: 06/21/2016Excision of squamous cell carcinoma| Service Date: 06/07/2016Electrodesiccation with curettage| Service Date: 03/27/2016Shave biopsy| Service Date: 03/20/2016Colonoscopy| Service Date: 01/10/2016US - Ultrasound abdomen complete| Service Date: 12/29/2015CT of cervical spine| Service Date: 08/10/2015CXR - Chest X-ray| Service Date: 08/10/2015Head CT w/o contrast| Service Date: 08/10/2015DEXA - Dual energy X-ray photon absorptiometry| Service Date: 01/11/2015Mammogram - screening| Service Date: 01/11/2015MRI| Service Date: 07/07/2014Culture, fungi (mold or yeast) isolation, with presumptive identification of isolates; other source (except blood)| Service Date: 01/14/2014Cholecystectomy| Service Date: 01/14/2014Laparoscopic cholecystectomy| Service Date: 01/14/2014Ultrasound| Service Date: 01/09/2014rthroscopic procedure| Service Date: 08/31/2013Shave biopsy of skin| Service Date: 05/22/2011asal cell removed - left upper chest| Service Date: 2011LAP- Gastric BAND surgery status| Service Date: 08/22/2007ppendectomy| Service Date: 1963Tonsillectomy| Service Date: 1953mammogram - 10/2012R wrist carpal tunnel surgery - 05/2012colonoscopy - 08/23 Medications alendronate(Fosamax 70 mg oral tablet), 70 mg= 1 tab, PO, q7days, 4 refills amLODIPine(amLODIPine 5 mg oral tablet), 2.5 mg= 0.5 tab, PO, Daily, 3 refills ascorbic acid(Vitamin C), See Instructions aspirin(aspirin 81 mg oral delayed release tablet), 81 mg= 1 tab, PO, Daily atorvastatin(atorvastatin 40 mg oral tablet), 1 tab, PO, Daily, 3 refills calcium carbonate(calcium (as carbonate) 600 mg oral tablet), 600 mg= 1 tab, PO, Daily citalopram(citalopram 10 mg oral tablet), 10 mg= 1 tab, PO, Daily, 3 refills cranberry(Cranberry) olmesartan(olmesartan 20 mg oral tablet), 1 tab, PO, Daily triamcinolone topical(triamcinolone 0.1% topical ointment), 1 appl, topical, bid Allergies LORazepamtakes days to wear off codeinevomiting Social History Smoking Status Never smoked cigarettes Alcohol - Low Risk Exercise - Regular exercise Exercise type:Walking, Aerobics, Swimming, Weight lifting - Comments: goes to gym 2x/week Tobacco - Denies Tobacco Use Family History Diabetes mellitus: MGF. Emphysema: Father. Heart disease: Father. Health Status Family Member(s) Immunizations Vaccine Date Status influenza virus vaccine, inactivated 11/17/2023 Recorded RSV vaccine preF3, recombinant 12/27/2022 Recorded influenza virus vaccine, inactivated 11/20/2022 Recorded influenza virus vaccine, inactivated 11/06/2021 Given SARS-CoV-2 (COVID-19) mRNA-1273 vaccine 06/24/2021 Recorded SARS-CoV-2 (COVID-19) mRNA-1273 vaccine 06/24/2021 Recorded SARS-CoV-2 (COVID-19) mRNA-1273 vaccine 12/10/2020 Recorded influenza virus vaccine, inactivated 11/02/2020 Given SARS-CoV-2 (COVID-19) mRNA-1273 vaccine 04/06/2020 Recorded Comments : 2021-11-06: Historical information-source unspecified SARS-CoV-2 (COVID-19) mRNA-1273 vaccine 03/09/2020 Recorded influenza virus vaccine, inactivated 10/15/2019 Recorded zoster vaccine, inactivated 08/14/2019 Given Comments : Suspension [id number] 04/16/21 zoster vaccine, inactivated 04/13/2019 Given influenza virus vaccine, inactivated 11/24/2018 Given influenza virus vaccine, inactivated 01/03/2018 Recorded influenza virus vaccine, inactivated 12/12/2016 Given influenza virus vaccine, inactivated 11/23/2015 Given tetanus/diphtheria/pertuss, acel (Tdap) 08/10/2015 Recorded diphtheria/pertussis, whole cell/tetanus 08/10/2015 Recorded Comments : 2021-11-06: Historical information-source unspecified pneumococcal 13-valent vaccine 11/23/2014 Given Comments : Other : busy, unable to chart until now. influenza virus vaccine, inactivated 11/23/2014 Given influenza virus vaccine, inactivated 10/2013 Recorded zoster vaccine live 07/25/2009 Recorded pneumococcal 23-valent vaccine 12/11/2007 Recorded tetanus toxoids-diphtheria, Td (Adult) 12/11/2007 Recorded Recommendations Health Maintenance Pending(in the next year) OverDue Medicare Annual Wellness Visit due11/06/22and every 1year Due Body Mass Index due02/14/24and every 366day Adult Social Determinants of Health Screening due02/17/24Unknown Frequency Due In Future Adult Influenza Vaccine not due until08/11/24and every 1year Satisfied(in the past 1 year) Satisfied Adult Influenza Vaccine on11/17/23.Satisfied by RINKU Warren Amber Lipid Screening on07/09/23.Satisfied by Contributor_system, [employer] Electronic Signature on File Electronically Reviewed/Signed by: JADYN Penaloza Author Signature Dt/Tm:02/17/2024 04:04 PM Department of Family Medicine TB Patient Care team information Care Team Personnel Name: DO Harvey Kristen M Position: Physician - Family Med Member Role: Lifetime Relationship Address: [address] [place] [address] Name: MD uQach Juan Position: Physician - Family Med Member Role: Primary Care Provider Address: [address] [place] [address] Name: Donya Resendiz Joy Position: Pharmacist Schedule II Member Role: Pharmacy - Lifetime Care Team Related Persons Name: FREDY WILDE
[2024-02-21] MEDS: amLODIPine BESYLATE 5 MG TAB PO SCH (08:52)
[2024-02-21] MEDS: CALCIUM CARBONATE 1250MG TAB PO SCH (08:56)
[2024-02-21] MEDS: LOSARTAN POTASSIUM 50 MG TAB PO SCH (08:56)
[2024-02-21] MEDS: CHOLECALCIFEROL 25 MCG (1000 UNITS) TAB PO SCH (08:56)
[2024-02-21] MEDS: ATORVASTATIN 40 MG TAB PO SCH (08:57)
[2024-02-21] MEDS: ASPIRIN 81 MG ECTAB PO SCH (08:57)
[2024-02-21] MEDS: CITALOPRAM 20 MG TAB PO SCH (08:57)
[2024-02-21] MEDS: CLOPIDOGREL BISULFATE 75 MG TAB PO SCH (08:59)
--- NOTE | 2024-02-21 09:38 | Cardiology Consultation ---
Date of Consultation February 21, 2024 Assessment & Plan (1) BARBER (dyspnea on exertion): Plan PMHx: 1. Ascending aortic dilatation 3.8 cm 2. Hypertension 3. Hyperlipidemia 4. Soft murmur likely secondary to aortic sclerosis 5. Echocardiogram 2022 with normal LV function ejection fraction with mild mitral valve regurgitation and mild aortic insufficiency Given suddenness of Ms. Horner's onset of her shortness of breath and persistence in the symptoms as well as comparison of her EKG in the clinic last night to her previous showing deeper inferior Q waves the plan is for cardiac catheterization today. Idiscussed the risk benefits of cardiac catheterization last evening with her in the clinic.Risks including but not limited tobleeding or infection at the puncture site, damage to the patient's radial or femoral artery,risk of contrast-induced nephropathy, allergic reaction to contrastand aone in ten thousand risk of heart attack, stroke, or . The patient understands the risksand wishes to proceed. Idiscussed the risk benefits of cardiac catheterization.Risks including but not limited tobleeding or infection at the puncture site, damage to the patient's radial or femoral artery,risk of contrast-induced nephropathy, allergic reaction to contrastand aone in ten thousand risk of heart attack, stroke, or . The patient understands the risksand wishes to proceed. She continues on a heparin drip for now. History of Present Illness Attending Physician: Toby Kiser MD History of Present Illness Ms. Horner presented to the clinic yesterday for follow-up of emergency department visit for dyspnea on exertion Starting around a week ag. Her ED visit did not reveal any significant lab abnormalities. She had a CTA to rule out PE which was negative for such. She had a normal BNP and Trope. In the clinic she noted that she felt her shortness of breath was worse with exertion even with short distances such as walking to her bathroom. She did not have any chest pain but did have some pain in the middle of her back the day before. This morning she feels the same. She is in normal sinus rhythm on the monitor. She did note some coughing this morning which has since resolved. Nonproductive. No aches or chills Allergies Allergy/AdvReac Type Severity Reaction Status Date / Time lorazepam AdvReac Intermediate WEAKNESS,LETHARGY Verified 06/15/22 07:50 X 5 DAYS codeine AdvReac Mild GI SYMPTOMS Verified 06/15/22 07:50 Home Medications Medication Instructions Recorded Confirmed Type calcium carbonate (Calcium 600) 1,200 mg PO QAM 03/30/18 02/20/24 History cholecalciferol (vitamin D3) 25 2,000 unit PO QAM 03/30/18 02/20/24 History mcg (1,000 unit) capsule (Vitamin D3) ascorbic acid (vitamin C) 250 mg 500 mg PO QAM 07/26/21 02/20/24 History tablet (Vitamin C) amlodipine 5 mg-olmesartan 20 mg 1 tab PO DAILY 05/12/22 02/20/24 History tablet citalopram 10 mg tablet 10 mg PO DAILY 05/12/22 02/20/24 History aspirin 81 mg tablet,delayed 81 mg PO QAM #0 tabs 05/14/22 02/20/24 Rx release atorvastatin 40 mg tablet 40 mg PO QAM #30 tabs 05/14/22 02/20/24 Rx isosorbide mononitrate 30 mg 30 mg PO QAM 30 days #30 tabs 02/21/24 Rx tablet,extended release 24 hr Patient History Medical History Acute CVA (cerebrovascular accident) History of colon polyps History of squamous cell carcinoma History of basal cell carcinoma Hand fracture hx multiple hand bones Foot fracture hx multiple fractures History of trigger finger Sleep apnea CPAP Hyperlipidemia Surgical History History of basal cell carcinoma (BCC) excision History of squamous cell carcinoma excision History of arthroscopy Rt hip S/P carpal tunnel release History of cataract surgery History of laparoscopic adjustable gastric banding History of tonsillectomy History of dilatation and curettage History of cholecystectomy History of appendectomy History of colonoscopy Family History Father Cardiac disorder Other Arthritis No family history of adverse response to anesthesia Social History Smoking Status: Never smoker Tobacco Type: Cigarettes Age Started Using Tobacco: 17; Age Quit Using Tobacco: 63; packs per day: 1; Second Hand Exposure: No; Do You Dip or Chew Tobacco: No; Hx Alcohol Use: Yes Alcohol type: hard liquor Hx Substance Use: No Preferred Language: [place] Island[place] Communication Ability: Effective Riveter Required: No Beliefs That Will Affect Care: None Current Living Situation: Alone Current Living Situation Comment: alone in home with dog current occupational status: retired 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[employer] Feels Safe at Home: Yes Assistive Devices: None Review of Systems Review of Systems: All systems reviewed & are unremarkable except as noted in HPI & below Physical Exam Constitutional: WD/WN, vitals as above Respiratory: normal respiratory effort, lungs clear to auscultation Cardiovascular: RRR, no murmur, no edema Skin: no rashes, warm and dry Neurologic: moves all extremities and awake Psychiatric: A+Ox3, euthymic affect Results & Data Vital Signs (Past 12 Hours) Vital Signs Temp Pulse Pulse Resp BP BP Pulse Ox 02/21/24 07:27 36.6 C 62 17 135/84 95 02/21/24 02:48 36.6 C 68 16 126/80 97 02/20/24 23:45 68 26 H 97 02/20/24 22:01 02/20/24 22:01 36.8 C 69 18 167/82 H 94 02/20/24 22:00 80 02/20/24 21:55 36.8 C 69 18 167/82 H 94 02/20/24 21:55 Pulse Ox O2 Del Method O2 Del Method 02/21/24 07:27 Room Air 02/21/24 02:48 Room Air 02/20/24 23:45 02/20/24 22:01 Room Air 02/20/24 22:01 Room Air 02/20/24 22:00 02/20/24 21:55 Room Air 02/20/24 21:55 94 Room Air
[2024-02-21] MEDS ORDERED: Nursing to Pharmacy Communication SCH (10:00)
[2024-02-21] MEDS: CLOPIDOGREL BISULFATE 75 MG TAB PO ONE (11:09)
--- NOTE | 2024-02-21 12:35 | Hospitalist Progress Note ---
Date of Service February 21, 2024 Assessment & Plan (1) BARBER (dyspnea on exertion): (2) Dyslipidemia: (3) Hypertension: (4) ILIA on CPAP: (5) Chronic cerebral ischemia: Plan 83 yo female PMHx anxiety, HTN, HLD, osteoporosis admitted with one week of dyspnea on exertion x 1 week. #Dypnea on Exertion Presents with a week duration of Shortness of breath on mild exertion Some deep Q waves on EKG Cardiology consulted Heparin drip, anti-Xa per protocol Plan for catheterization 02/21/24 echo ordered Trop unremarkable nitro and ekg with chest pain #Hx of CVA continue ASA 81 daily #HTN Meds converted to amlodipine/losartan Resume usual regimen at dc #HLD continue atorvastatin #ILIA on CPAP CPAP HS FENGI: Heart healthy, NPO midnight Code status: full DVT prophylaxis: lovenox Isolation: none Disposition: PCU Admission and Anticipated Discharge Date Admission Date: February 20, 2024 Subjective patient seen and examined, still short of breath on mild exertion Review of Systems Review of Systems: All systems reviewed are negative, apart from the ones contained in the history. Physical Exam Physical Exam: The patient is awake, alert and oriented 3, well developed and well nourished, normocephalic and atraumatic, lying in bed and in no acute distress. HEENT--PERRL, EOMI, mucous membranes and oropharynx mildly dry Neck--supple. No JVD. No bruits. Thyroid normal, trachea midline, no adenopathy. Heart--normal S1 and S2. No murmurs, rubs or gallops. Lungs--clear bilaterally, no respiratory distress, no accessory muscle use. Abdomen--normal bowel sounds and soft. Extremities--no cyanosis or clubbing. No edema. Dermatologic--normal skin turgor, normal color, no abnormal lymph nodes, no rash. Neurologic--cranial nerves II through XII grossly intact. Rheumatologic--normal range of motion. Psychiatric--normal affect. Results & Data Results & Data Vital Signs (Past 12 Hours) Vital Signs Temp Pulse Pulse Resp BP BP Pulse Ox 02/21/24 11:02 97.5 F L 54 L 16 160/85 H 95 02/21/24 10:24 65 02/21/24 10:10 02/21/24 07:27 97.9 F 62 17 135/84 95 01/10/25 02:48 97.9 F 68 16 126/80 97 O2 Del Method 02/21/24 11:02 Room Air 02/21/24 10:24 02/21/24 10:10 Room Air 02/21/24 07:27 Room Air 02/21/24 02:48 Room Air PG Care Time/CCT Total # of Minutes Spent Total Time Spent with Patient: Total time spent is greater than 50% in coordination of care (as documented) at patient's floor/unit and/or counseling patient: Coding Level of Care Code 79703 SUB INP/OBS CARE 2/35MIN Diagnoses BARBER (dyspnea on exertion) R06.09 Dyslipidemia E78.5 Primary hypertension I10 Hypertension type: primary hypertension ILIA on CPAP G47.33; Z99.89 Chronic cerebral ischemia I67.82 Time Spent (min) 35 (3) Hypertension Hypertension type: primary hypertension Qualified Code(s): I10 - Essential (primary) hypertension
--- NOTE | 2024-02-21 13:06 | Pre Anesthesia Assessment ---
Date of Service February 21, 2024 Pre Sedation Assessment Vital Signs Temp Pulse Pulse Resp BP BP BP 02/21/24 12:49 61 14 161/80 H 02/21/24 11:02 97.5 F L 54 L 16 160/85 H 02/21/24 10:24 65 02/21/24 10:10 02/21/24 07:27 97.9 F 62 17 135/84 02/21/24 02:48 97.9 F 68 16 126/80 02/20/24 23:45 68 26 H 02/20/24 22:01 02/20/24 22:01 98.2 F 69 18 167/82 H 02/20/24 22:00 80 02/20/24 21:55 98.2 F 69 18 167/82 H 02/20/24 21:55 02/20/24 21:03 68 19 127/55 L 02/20/24 20:15 68 20 02/20/24 19:39 73 23 127/78 02/20/24 19:03 70 16 136/93 02/20/24 18:21 72 19 02/20/24 18:14 02/20/24 18:12 74 17 155/74 H 02/20/24 18:08 72 02/20/24 17:42 02/20/24 17:39 97.9 F 77 18 147/85 H Pulse Ox Pulse Ox O2 Del Method O2 Del Method 02/21/24 12:49 93 Room Air 02/21/24 11:02 95 Room Air 02/21/24 10:24 02/21/24 10:10 Room Air 02/21/24 07:27 95 Room Air 02/21/24 02:48 97 Room Air 02/20/24 23:45 97 02/20/24 22:01 Room Air 02/20/24 22:01 94 Room Air 02/20/24 22:00 02/20/24 21:55 94 Room Air 02/20/24 21:55 94 Room Air 02/20/24 21:03 93 02/20/24 20:15 95 02/20/24 19:39 96 02/20/24 19:03 93 02/20/24 18:21 94 02/20/24 18:14 Room Air 02/20/24 18:12 98 02/20/24 18:08 02/20/24 17:42 95 Room Air 02/20/24 17:39 96 Room Air Cardiovascular + regular rate Respiratory + respiratory effort normal Pre-Sedation Airway Assessment Smoking Status: Never smoker Hx Sleep Apnea: No Short, Thick Neck: No Thyromental Distance: > or= 3.5 Finger Breadths Oral Cavity: + WNL Mallampati Class: III ASA: ASA3 NPO Status Date of Last Intake of Fluids: 02/20/24 Time of Last Intake of Fluids: 18:00 Date of Last Intake of Solid Food: 02/20/24 Time of Last Intake of Solid Foods: 18:00 Procedure Planning Contraindications for Sedation: none Current Medications Reviewed: Yes Notes The planned sedation has been discussed with the patient. Informed Consent was obtained. I have identified the patient, determined the appropriateness of sedation and have assessed the patient immediately prior to the procedure. All medicine(s) and interventions are by my order.
[2024-02-21] MEDS: niCARdipine 2,000 MCG/20 ML SYR ONE (13:12)
[2024-02-21] MEDS: NITROGLYCERIN/D5W 100MCG/ML 20ML SYR ONE (13:13)
[2024-02-21] MEDS: HEPARIN (PORCINE) 1000 UNIT/ML 10 ML (CATH LAB USE ONLY) ONE (13:42)
[2024-02-21] MEDS: OPTIRAY 350 ONE (13:42)
[2024-02-21] MEDS: MIDAZOLAM HCL 1 MG/ML 2ML VIAL ONE (13:43)
[2024-02-21] MEDS: fentaNYL citrate PF 100 MCG/2 ML VIAL ONE (13:43)
--- NOTE | 2024-02-21 14:09 | Post Anesthesia Assessment ---
Date of Service February 21, 2024 Post Sedation Assessment Vital Signs Temp Pulse Pulse Pulse Resp BP BP 02/21/24 13:53 63 14 135/75 02/21/24 12:49 61 14 161/80 H 02/21/24 11:02 97.5 F L 54 L 16 160/85 H 02/21/24 10:24 65 02/21/24 10:10 02/21/24 07:27 97.9 F 62 17 135/84 02/21/24 02:48 97.9 F 68 16 02/20/24 23:45 68 26 H 02/20/24 22:01 02/20/24 22:01 98.2 F 69 18 02/20/24 22:00 80 02/20/24 21:55 98.2 F 69 18 02/20/24 21:55 02/20/24 21:03 68 19 127/55 L 02/20/24 20:15 68 20 02/20/24 19:39 73 23 127/78 02/20/24 19:03 70 16 136/93 02/20/24 18:21 72 19 02/20/24 18:14 02/20/24 18:12 74 17 155/74 H 02/20/24 18:08 72 02/20/24 17:42 02/20/24 17:39 97.9 F 77 18 147/85 H BP Pulse Ox Pulse Ox O2 Del Method O2 Del Method 02/21/24 13:53 93 Room Air 02/21/24 12:49 93 Room Air 02/21/24 11:02 95 Room Air 02/21/24 10:24 02/21/24 10:10 Room Air 02/21/24 07:27 95 Room Air 02/21/24 02:48 126/80 97 Room Air 02/20/24 23:45 97 02/20/24 22:01 Room Air 02/20/24 22:01 167/82 H 94 Room Air 02/20/24 22:00 02/20/24 21:55 167/82 H 94 Room Air 02/20/24 21:55 94 Room Air 02/20/24 21:03 93 02/20/24 20:15 95 02/20/24 19:39 96 02/20/24 19:03 93 02/20/24 18:21 94 02/20/24 18:14 Room Air 02/20/24 18:12 98 02/20/24 18:08 02/20/24 17:42 95 Room Air 02/20/24 17:39 96 Room Air Recovery Score Activity: Moves 4 extremities Respiration: Deep Breath/Cough Circulation: +/-20% PreAnes Value Consciousness: Fully Awake Oxygen Saturation: > 92% On Room Air Post Anesthesia Score: 10 Discharge Sedation Level of Care: Fast Track Phase II Post Sedation Plan On clinical assessment, the patient appears to have tolerated the sedation without complications. Patient is recovering as anticipated. Patient will continue to be monitored by nursing and may be discharged when sedation discharge criteria are met per below protocol. Upon Completions of procedure up to 15 minutes continue every 5 minute vital signs and the P.A.R. score; then discharge to a Phase I or Fast Track to Phase II per the following guidelines: * Discharge Patient to appropriate Phase II area if PAR is 8 or greater or return to pre- procedure baseline. The post - procedure orders will be as directed. * If PAR score is less than 8 or not return to pre-procedure baseline then patient will follow Phase I monitoring till PAR is reached for Phase II. The Phase I may be done in procedure room or may call to secure a Phase I area. * If naloxone or flumazenil are used for reversal, hold in Phase I for continued monitoring from when last reversal dose was given for a minimum of 60 minutes or longer pending the nurse and/or physician discretion of patient condition before discharge to Phase II. Please call the Sedation Physician to re-evaluate and complete post-note for discharge to Phase II area. Do NOT discharge from procedure sedation or Phase 1 until post- sedation evaluation note is complete by procedure /sedation MD Sedation Discharge Instructions to be given to the patient at discharge to home.
--- NOTE | 2024-02-21 14:14 | Cardiac Catheterization ---
[facility] Data: Neurodiagnostic Tech Cardiac Status Clinical evaluation leading to the procedure CAD Presenation: Unstable angina Diagnostic Physicians Name: Js Wade MD Closure Device Recommendations: Medical Therapy and/or Counseling Cardiac Cath Procedure Full Procedure Date February 21, 2024 Pre-Procedure Diagnosis Pre-Procedure Diagnosis: Angina and CAD AUC Score AUC Score: 7 Post-Procedure Diagnosis Post-Procedure Diagnosis: Moderate CAD and Elevated Intracardiac Pressures Procedure(s) Performed Procedure(s) Performed: Coronary Angiography and Left Heart Cath Ichthyology Teacher Js Wade MD Physical Therapy Attendant(s) Becca Estimated Blood Loss Estimated Blood Loss: 5 Medication(s) Medication(s): Fentanyl, Heparin, Lidocaine 1%, Nicardipine, Nitroglycerin and Versed Summary of Findings Indication: Exertional dyspnea, abnormal ECG, coronary artery calcifications on CT Access: 6 Fr slender right radial artery (radial artery loop navigated with Glidewire). Catheters: Webb Findings: LM -normal caliber, no significant disease LAD -medium caliber, 30% ostial, angulated mid segment with 50% stenosis of mid and distal vessel without significant disease and wraps around apex. Circumflex -dominant, medium caliber, luminal irregularities. Large OM1 bifurcates in the midsegment. Lateral branch of OM1 with 60-70% ostial stenosis. Small left PDA without significant disease. RCA -small, nondominant, no significant disease LVEDP -18 Arterial Closure: TR band Summary: 1. Moderate coronary artery disease -30% ostial, 50% mid LAD Small lateral branch of OM1 with 60-70% ostial stenosis 2. Borderline intracardiac filling pressure Recommendations: No acute or high risk CAD to explain patient's recent symptoms Could consider additional trial of antianginal therapy for branch vessel disease and exertional symptoms Continued ASCVD risk factor modification per Paula Jarvis. Hemodynamics Rest Ao:: 180/77/126 Final Ao: 182/77/132 LV: 177/18 Recommendations Recommendations: Medical Therapy and/or Counseling Radiation Exposure (mGy) 645 Contrast (mls) 70 Anesthesia Moderate 4211-7902 Procedural Complication(s) None Disposition Neurodiagnostic Tech Holding/Recovery I attest to the content of the Intraoperative Record and any orders documented therein. Any exceptions are noted below. [employer] Card Cath Procedure Codes Cardiac Catheterization Procedure 1: Cardiovascular Cath Procedures: 02377 Coronaries and LHC (+/-LV) Moderate Sedation Procedure 1: Sedation/Anesthesia: 74145 Mod Sedation by the same physician;Init15 Min Child Age 5 & Up PG Care Time/CCT Total # of Minutes Spent Total Time Spent with Patient: Total time spent is greater than 50% in coordination of care (as documented) at patient's floor/unit and/or counseling patient:
[2024-02-21 14:48] VITALS: RESP 17
--- NOTE | 2024-02-21 15:48 | XCELERA ---
[id number]
[2024-02-21 16:22] VITALS: TEMP 98.1; O2SAT 96
--- NOTE | 2024-02-21 17:21 | Electrocardiogram Report ---
Test Reason : Blood Pressure : */* mmHG Vent. Rate : 70 BPM Atrial Rate : 70 BPM P-R Int : 180 ms QRS Dur : 148 ms QT Int : 426 ms P-R-T Axes : 55 38 24 degrees QTcB Int : 460 ms Poor data quality, interpretation may be adversely affected Normal sinus rhythm Right bundle branch block Possible Inferior infarct , age undetermined Abnormal ECG When compared with ECG of 17-Feb-2024 15:53, No significant change was found Confirmed by Avel Mercado ([id number]) on 02/21/2024 5:20:44 PM Referred By: Confirmed By: Avel Mercado
--- NOTE | 2024-02-21 17:30 | Discharge Summary ---
Date of Service February 21, 2024 Admission HPI Per Admitting Provider 83 yo female PMHx anxiety, HTN, HLD, osteoporosis admitted with one week of dyspnea on exertion x 1 week. She was seen in the ED on 02/17/24 for the same problem. At the time she had no significant laboratory findings, CXR was negative, CTPE was negative. She was discharged home with an albuterol inhaler which did not relieve her symptoms. She was seen by [facility] cardiology today. Note reviewed states that the patient has "new/deeper Q waves in her inferior leads." Case was discussed with interventional cardiology and it was agreed that the patient would be admitted to [facility] for heparinization and catheterization on 02/21/24. Currently the patient denies CP, SOB, abdominal pain, nausea, vomiting, lightheadedness, dizziness, and diarrhea. ED course: Heparin was started Labs are largely unremarkable Admission Exam (Per Admitting) Constitutional The patient is awake, alert and oriented 3, well developed and well nourished, normocephalic and atraumatic, lying in bed and in no acute distress. HEENT--PERRL, EOMI, mucous membranes and oropharynx mildly dry Neck--supple. No JVD. No bruits. Thyroid normal, trachea midline, no adenopathy . Heart--normal S1 and S2. No murmurs, rubs or gallops. Lungs--clear bilaterally, no respiratory distress, no accessory muscle use. Abdomen--normal bowel sounds and soft. Extremities--no cyanosis or clubbing. No edema. Dermatologic--normal skin turgor, normal color, no abnormal lymph nodes, no rash. Neurologic--cranial nerves II through XII grossly intact. Rheumatologic--normal range of motion. Psychiatric--normal affect. Discharge Data Consultations 02/20/24 19:10 ED Decision to Admit Stat 02/20/24 21:55 Consult Cardiology Routine 02/21/24 07:53 Consult Cardiology Routine Procedures Performed Operation Date: 02/21/24 13:00 Actual Procedures p Cineradiography w/Routine Exam - Js Wade MD s Cath, Left with Cors and Vent - Js Wade MD Hospital Course (1) BARBER (dyspnea on exertion): (2) Dyslipidemia: (3) Hypertension: (4) ILIA on CPAP: (5) Chronic cerebral ischemia: Plan 83 yo female PMHx anxiety, HTN, HLD, osteoporosis admitted with one week of dyspnea on exertion x 1 week. #Dypnea on Exertion Presents with a week duration of Shortness of breath on mild exertion Some deep Q waves on EKG Cardiology consulted she is now post cardiac cath, which showed non obstructive coronaries Imdur was addeded to her regimen by cardiology and okayed her for d/c after her post cath protocol #Hx of CVA continue ASA 81 daily and Plavix #HTN Meds converted to amlodipine/losartan Resume usual regimen at dc #HLD continue atorvastatin #ILIA on CPAP CPAP HS FENGI: Heart healthy, NPO midnight Code status: full DVT prophylaxis: lovenox Isolation: none Disposition: PCU Coding Level of Care Code 14924 INP/OBS DISCH >30 MIN Diagnoses BARBER (dyspnea on exertion) R06.09 Dyslipidemia E78.5 Primary hypertension I10 Hypertension type: primary hypertension ILIA on CPAP G47.33; Z99.89 Chronic cerebral ischemia I67.82 Time Spent (min) 35
[2024-02-21 18:28] VITALS: BP 126/80; PULSE 61
[2024-02-22] MEDS ORDERED: ISOSORBIDE MONO EXTENDED REL 30 MG TABCR PO SCH (09:00)
== END 2024-02-21 18:56 | disposition home or self-care (01) ==
LOC: ED 17:32 → 2S 20:02 → INTOOBSV 20:02 → SUATTDRO 20:02 → 2S 21:35